=== PATIENT | male | born 1960 | race Caucasian/White ===

== ENCOUNTER 2022-03-20 09:53 | Day surgery (SDC) | payer BC ==
[2022-03-19 12:08] LABS: BASOPHILS % (AUTO) 0.5 % (0-1); EOSINOPHILS # (AUTO) 0.1 X10'3 (0-0.9); EOSINOPHILS % (AUTO) 1.5 % (0-6); HEMATOCRIT 44.2 % (42.0-52.0); LYMPHOCYTES # (AUTO) 1.4 X10'3 (1.1-4.8); MEAN CORPUSCULAR HEMOGLOBIN 34.4 PG (27.0-31.0); MEAN CORPUSCULAR HGB CONC 33.8 g/dL (33.0-36.5); MEAN CORPUSCULAR VOLUME 101.6 FL (78-98); MEAN PLATELET VOLUME 9.3 FL (7.4-10.4); MONOCYTES # (AUTO) 0.7 X10'3 (0-0.9); MONOCYTES % (AUTO) 15.7 % (2-12); NEUTROPHILS % (AUTO) 49.3 % (42-75); PLATELET COUNT 129 X10'3 (140-440); RED BLOOD COUNT 4.35 X10'6 (4.70-6.10); WHITE BLOOD COUNT 4.2 X10'3 (4.5-11.0)
[2022-03-19 12:10] LABS: ALBUMIN 3.4 G/DL (3.4-5.0); ANION GAP 8 (8-16); BLOOD UREA NITROGEN 5 MG/DL (7-18); BUN/CREATININE RATIO 6.5 (5.4-32.0); CALCIUM 8.4 MG/DL (8.5-10.1); CHLORIDE 100 MMOL/L (99-107); CREATININE 0.77 MG/DL (0.60-1.10); GLUCOSE 110 MG/DL (70-104); POTASSIUM 4.1 MMOL/L (3.5-5.1); SODIUM 137 MMOL/L (135-145); TOTAL CARBON DIOXIDE 29.1 MMOL/L (24-32); eGFR > 90 ML/MIN
[2022-03-19 12:13] LABS: APTT 29 SECONDS (22-32)
[2022-03-19 12:33] LABS: PLATELET ESTIMATE DECREASED; TOTAL CELLS COUNTED 100
[~2022-03-20] VITALS: Ht 175.3 cm; Wt 111.9 kg
[2022-03-20] VITALS (14 sets, daily range): BP systolic 91–117; BP diastolic 51–81
[2022-03-20] MEDS ORDERED: MIDAZolam 1mg/ml 10ml vial IV ONE (10:20)
[2022-03-20] MEDS ORDERED: fentaNYL/PF 50MCG/1 ML 2ML syringe IV ONE (10:20)
[2022-03-20] MEDS ORDERED: normal saline 1000ml 1,000 ML IV SCH (10:20)
[2022-03-20] MEDS ORDERED: SOTA120T9 PO (10:22)
[2022-03-20] MEDS ORDERED: FURO40TA4 PO (10:22)
[2022-03-20] MEDS ORDERED: APIX5TAB3 PO (10:22)
[2022-03-20] MEDS ORDERED: FOLI1TAB27 PO (10:22)
[2022-03-20] MEDS ORDERED: CYAN500T71 PO (10:22)
[2022-03-20] MEDS ORDERED: LISI10TA27 PO (10:22)
[2022-03-20] MEDS ORDERED: POTA10TA PO (10:22)
== END 2022-03-20 15:15 | disposition home or self-care (01) ==
LOC: SSTAY O 09:53
PROVIDERS: ATTEND Student in an Organized Health Care Education/Training Program
DX: I48.91 Unspecified atrial fibrillation (principal); I11.0 Hypertensive heart disease with heart failure; I50.9 Heart failure, unspecified; I42.9 Cardiomyopathy, unspecified; I08.1 Rheumatic disorders of both mitral and tricuspid valves; E66.9 Obesity, unspecified; Z68.36 Body mass index [BMI] 36.0-36.9, adult; M19.90 Unspecified osteoarthritis, unspecified site; F10.20 Alcohol dependence, uncomplicated; Z79.899 Other long term (current) drug therapy; Z88.8 Allergy status to other drugs, medicaments and biological substances; Z88.5 Allergy status to narcotic agent
CPT/HCPCS: 36415; 80048; 85025; 85610; 85730; 92960; 93005; 94760; 94799; J2250; J3010; J7030; 85007; A4620

== ENCOUNTER 2022-07-19 10:16 | Inpatient (IN) | payer BC ==
[~2022-07-19] VITALS: Ht 177.8 cm; Wt 112.3 kg
[~2022-07-19 10:16] MED LIST: APIX5TAB3 PO; CYAN500T71 PO; FOLI1TAB27 PO; FURO40TA4 PO; LISI10TA27 PO; POTA10TA PO; SOTA120T9 PO
[2022-07-19 11:03] LABS: ALANINE AMINOTRANSFERASE 74 U/L (12-78); ALKALINE PHOSPHATASE 324 IU/L (46-116); ANION GAP 17 (8-16); BILIRUBIN,TOTAL 24.3 MG/DL (0.1-1.0); BLOOD UREA NITROGEN 7 MG/DL (7-18); CALCIUM 8.2 MG/DL (8.5-10.1); CHLORIDE 85 MMOL/L (99-107); LIPASE 195 U/L (73-393); SODIUM 123 MMOL/L (135-145); TOTAL CARBON DIOXIDE 20.9 MMOL/L (24-32); eGFR > 90 ML/MIN
[2022-07-19 11:08] LABS: BASOPHILS # (AUTO) 0.1 X10'3 (0-0.2); BASOPHILS % (AUTO) 1.7 % (0-1); EOSINOPHILS % (AUTO) 0.5 % (0-6); HEMATOCRIT 32.6 % (42.0-52.0); HEMOGLOBIN 11.5 g/dl (14.0-17.9); LYMPHOCYTES # (AUTO) 0.9 X10'3 (1.1-4.8); LYMPHOCYTES % (AUTO) 11.8 % (21-51); MEAN CORPUSCULAR HEMOGLOBIN 36.3 PG (27.0-31.0); MEAN CORPUSCULAR HGB CONC 35.1 g/dL (33.0-36.5); MEAN CORPUSCULAR VOLUME 103.5 FL (78-98); MEAN PLATELET VOLUME 8.8 FL (7.4-10.4); MONOCYTES # (AUTO) 0.8 X10'3 (0-0.9); NEUTROPHILS # (AUTO) 5.7 X10'3 (1.8-7.7); PLATELET COUNT 87 X10'3 (140-440); RED BLOOD COUNT 3.15 X10'6 (4.70-6.10); RED CELL DISTRIBUTION WIDTH 16.3 % (11.5-14.5); WHITE BLOOD COUNT 7.5 X10'3 (4.5-11.0)
[2022-07-19 11:11] LABS: ANISOCYTOSIS 1+; PLATELET ESTIMATE DECREASED; SPHEROCYTES 1+; TARGET CELLS FEW
[2022-07-19 11:24] LABS: ALBUMIN/GLOBULIN RATIO 0.5 (1.1-1.5); ASPARTATE AMINO TRANSFERASE 278 U/L (10-37); GLUCOSE 95 MG/DL (70-104); TOTAL PROTEIN 6.3 G/DL (6.4-8.2)
[2022-07-19 11:26] LABS: POTASSIUM 2.9 MMOL/L (3.5-5.1)
[2022-07-19] MEDS ORDERED: POTASSIUM BICARB 20meq eff tab 20 MEQ TABLET.EFF PO ONE (11:50)
[2022-07-19 15:10] LABS: CLARITY,URINE SLIGHTLY CLOUDY (Clear); COLOR,URINE Brown (Yellow); UA COLLECTION TYPE CLN CATCH MIDSTREAM
[2022-07-19 15:12] LABS: BACTERIA,URINE FEW /HPF (Neg); RBC,URINE 0-2 /HPF (0-2)
[2022-07-19 15:13] LABS: MUCUS STRANDS NONE SEEN /LPF (Neg); SQUAMOUS EPITHELIAL CELL,UR FEW /LPF (FEW)
[2022-07-19 15:14] LABS: WBC CASTS 0-3 /LPF (NEGATIVE)
[2022-07-19] MEDS ORDERED: normal saline 1000ml 1,000 ML IV ONE (16:10)
[2022-07-19] MEDS ORDERED: CefTRIAXone 2gm/D5W 50ml BAG 50 ML IV ONE (16:10)
[2022-07-19] MEDS ORDERED: iohexol 300mg/ml 100ml inj. ONE (16:28)
[2022-07-19] MEDS ORDERED: magnesium hydroxide 30ml (MOM) UD suspension PO PRN (19:30)
[2022-07-19] MEDS ORDERED: ondansetron/PF 4mg/2ml inj IV PRN (19:30)
[2022-07-19] MEDS ORDERED: potassium Cl 40MEQ/1/2NS 520ml 520 ML IV PRN (19:30)
[2022-07-19] MEDS ORDERED: magnesium 4gm in 100ml NS 100 ML IV PRN (19:30)
[2022-07-19] MEDS ORDERED: mag hydrox/Alum hydrox/simeth 30ml oral suspension PO PRN (19:30)
[2022-07-19] MEDS ORDERED: magnesium Cl slow-release 64mg tablet PO PRN (19:30)
[2022-07-19] MEDS ORDERED: SOTA80TA10 PO (19:49)
[2022-07-19] MEDS: K and/or MAG REPLACEMENT MC SCH (20:00)
[2022-07-19] MEDS: docusate sod 100mg capsule PO SCH (20:00)
[2022-07-19] MEDS: normal saline 1000ml 1,000 ML IV SCH ×2 (20:29→22:24)
[2022-07-19 20:55] LABS: ALANINE AMINOTRANSFERASE 71 U/L (12-78); ALBUMIN 1.8 G/DL (3.4-5.0); ALKALINE PHOSPHATASE 289 IU/L (46-116); ANION GAP 13 (8-16); BILIRUBIN,TOTAL 22.4 MG/DL (0.1-1.0); BLOOD UREA NITROGEN 7 MG/DL (7-18); BUN/CREATININE RATIO 13.5 (5.4-32.0); CALCIUM 7.9 MG/DL (8.5-10.1); CHLORIDE 88 MMOL/L (99-107); CREATININE 0.52 MG/DL (0.60-1.10); SODIUM 123 MMOL/L (135-145); TOTAL CARBON DIOXIDE 22.3 MMOL/L (24-32); eGFR > 90 ML/MIN
[2022-07-19 21:08] LABS: ALBUMIN/GLOBULIN RATIO 0.5 (1.1-1.5); ASPARTATE AMINO TRANSFERASE 247 U/L (10-37); GLUCOSE 89 MG/DL (70-104); POTASSIUM 3.2 MMOL/L (3.5-5.1); TOTAL PROTEIN 5.6 G/DL (6.4-8.2)
[2022-07-19] MEDS: potassium Cl 20 mEq SR tablet PO PRN (23:14)
[2022-07-19] MEDS: LORazepam 2 mg/ml vial IV PRN (23:15)
--- NOTE | 2022-07-19 23:40 | NUR ---
CIWA SCORE 8
--- NOTE | 2022-07-20 03:00 | NUR ---
Found patient trying to get out of bed, all tele leads ripped off by himself. Patient had episode of incontinent urine with "no idea". Patient unable to stand, despite two person assist. Patient cleaned, new linens placed. Bed locked in lowest position and call light within reach. Educated patient on importance of using call light instead of trying to get out of bed.
[2022-07-20] MEDS: LORazepam 2 mg/ml vial IV PRN ×2 (03:17→05:32)
--- NOTE | 2022-07-20 03:17 | NUR ---
CIWA SCORE 16
--- NOTE | 2022-07-20 05:32 | NUR ---
CIWA SCORE 16
[2022-07-20] MEDS: docusate sod 100mg capsule PO SCH ×3 (08:00→20:55)
[2022-07-20] MEDS: K and/or MAG REPLACEMENT MC SCH ×2 (08:00→20:00)
[2022-07-20 09:03] LABS: BASOPHILS # (AUTO) 0.1 X10'3 (0-0.2); BASOPHILS % (AUTO) 1.2 % (0-1); EOSINOPHILS % (AUTO) 0.5 % (0-6); HEMATOCRIT 30.9 % (42.0-52.0); HEMOGLOBIN 10.8 g/dl (14.0-17.9); LYMPHOCYTES # (AUTO) 0.7 X10'3 (1.1-4.8); LYMPHOCYTES % (AUTO) 10.3 % (21-51); MEAN CORPUSCULAR HEMOGLOBIN 37.3 PG (27.0-31.0); MEAN CORPUSCULAR VOLUME 106.4 FL (78-98); MEAN PLATELET VOLUME 8.9 FL (7.4-10.4); MONOCYTES # (AUTO) 0.8 X10'3 (0-0.9); MONOCYTES % (AUTO) 12.8 % (2-12); NEUTROPHILS # (AUTO) 4.9 X10'3 (1.8-7.7); NEUTROPHILS % (AUTO) 75.2 % (42-75); PLATELET COUNT 78 X10'3 (140-440); RED BLOOD COUNT 2.91 X10'6 (4.70-6.10); RED CELL DISTRIBUTION WIDTH 16.5 % (11.5-14.5); WHITE BLOOD COUNT 6.5 X10'3 (4.5-11.0)
[2022-07-20 09:11] LABS: ALANINE AMINOTRANSFERASE 78 U/L (12-78); ALBUMIN 1.9 G/DL (3.4-5.0); ALKALINE PHOSPHATASE 285 IU/L (46-116); ANION GAP 10 (8-16); BILIRUBIN,TOTAL 24.1 MG/DL (0.1-1.0); BLOOD UREA NITROGEN 9 MG/DL (7-18); BUN/CREATININE RATIO 13.6 (5.4-32.0); CALCIUM 8.2 MG/DL (8.5-10.1); CHLORIDE 90 MMOL/L (99-107); CREATININE 0.66 MG/DL (0.60-1.10); MAGNESIUM 1.9 MG/DL (1.5-2.4); SODIUM 126 MMOL/L (135-145); eGFR > 90 ML/MIN
[2022-07-20 09:13] LABS: ALBUMIN/GLOBULIN RATIO 0.5 (1.1-1.5); GLUCOSE 105 MG/DL (70-104); POTASSIUM 3.2 MMOL/L (3.5-5.1); TOTAL PROTEIN 5.9 G/DL (6.4-8.2)
[2022-07-20] MEDS: potassium Cl 20 mEq SR tablet PO PRN (09:28)
[2022-07-20 09:52] LABS: ASPARTATE AMINO TRANSFERASE 130 U/L (10-37)
[2022-07-20 14:00] VITALS: BP 148/78
[2022-07-20 18:00] VITALS: BP 166/60
[2022-07-20] MEDS ORDERED: predniSONE 20 mg tablet PO ONE (18:45)
--- NOTE | 2022-07-20 18:46 | NUR ---
Patient in room PCU 3016A. I have received report from Destinee REVELES and had the opportunity to ask questions and assume patient care. Pt is laying supine in bed. Pt alert to self only. Pt declines any c/o pain at this time. Pt on RA. No s/s of distress. BLL, call light witin reach, frequently used items in reach, frequent rounding, senior premium auditor socks applied, will continue to monitor.
[2022-07-20] MEDS ORDERED: apixaban 5mg tablet PO SCH (20:00)
[2022-07-20] MEDS: Ursodiol 300mg capsule PO SCH (20:00)
[2022-07-20 20:43] LABS: HIV ANTIBODY 1&2 RAPID NON-REACTIVE (Neg)
[2022-07-20] MEDS: piperacillin/tazo 3.375gm/50ml 50 ML IV SCH (20:55)
[2022-07-20] MEDS: lactulose 20gm/30ml cup PO SCH (20:55)
[2022-07-20] MEDS: furosemide 40mg tablet PO SCH (20:55)
[2022-07-20] MEDS: sotalol HCl 40mg (1/2 tablet) PO SCH (20:57)
[2022-07-20 22:00] VITALS: BP 160/58
[2022-07-21] MEDS: piperacillin/tazo 3.375gm/50ml 50 ML IV SCH ×3 (00:57→16:45)
[2022-07-21 02:00] VITALS: BP 158/67
[2022-07-21] MEDS: lactulose 20gm/30ml cup PO SCH ×4 (02:00→20:03)
[2022-07-21 06:00] VITALS: BP 154/75
--- NOTE | 2022-07-21 06:35 | NUR ---
Problems reprioritized. Patient report given, questions answered & plan of care reviewed with Destinee REVELES.
[2022-07-21 07:15] LABS: ALANINE AMINOTRANSFERASE 79 U/L (12-78); ALBUMIN 1.9 G/DL (3.4-5.0); ALKALINE PHOSPHATASE 282 IU/L (46-116); ANION GAP 11 (8-16); BLOOD UREA NITROGEN 8 MG/DL (7-18); CALCIUM 8.3 MG/DL (8.5-10.1); CHLORIDE 90 MMOL/L (99-107); MAGNESIUM 1.9 MG/DL (1.5-2.4); SODIUM 127 MMOL/L (135-145); TOTAL CARBON DIOXIDE 26.5 MMOL/L (24-32)
[2022-07-21 07:31] LABS: ASPARTATE AMINO TRANSFERASE 227 U/L (10-37)
[2022-07-21 07:33] LABS: ALBUMIN/GLOBULIN RATIO 0.5 (1.1-1.5); BILIRUBIN,TOTAL 25.1 MG/DL (0.1-1.0); CREATININE 0.89 MG/DL (0.60-1.10); GLUCOSE 120 MG/DL (70-104); PHOSPHORUS 1.9 MG/DL (2.3-4.5); TOTAL PROTEIN 5.9 G/DL (6.4-8.2); eGFR 87 ML/MIN
[2022-07-21 07:37] LABS: POTASSIUM 2.9 MMOL/L (3.5-5.1)
--- NOTE | 2022-07-21 07:40 | NUR ---
RM 5944T: pt has critical K+ 2.9. Will replace per protocol Thanks Destinee
[2022-07-21 07:42] LABS: BASOPHILS # (AUTO) 0.1 X10'3 (0-0.2); BASOPHILS % (AUTO) 0.8 % (0-1); EOSINOPHILS % (AUTO) 0.1 % (0-6); HEMATOCRIT 29.1 % (42.0-52.0); HEMOGLOBIN 10.3 g/dl (14.0-17.9); LYMPHOCYTES # (AUTO) 0.5 X10'3 (1.1-4.8); LYMPHOCYTES % (AUTO) 6.9 % (21-51); MEAN CORPUSCULAR HEMOGLOBIN 36.8 PG (27.0-31.0); MEAN CORPUSCULAR HGB CONC 35.3 g/dL (33.0-36.5); MEAN CORPUSCULAR VOLUME 104.3 FL (78-98); MEAN PLATELET VOLUME 8.6 FL (7.4-10.4); MONOCYTES # (AUTO) 0.7 X10'3 (0-0.9); MONOCYTES % (AUTO) 9.4 % (2-12); NEUTROPHILS # (AUTO) 5.8 X10'3 (1.8-7.7); NEUTROPHILS % (AUTO) 82.8 % (42-75); PLATELET COUNT 86 X10'3 (140-440); RED BLOOD COUNT 2.79 X10'6 (4.70-6.10); RED CELL DISTRIBUTION WIDTH 16.6 % (11.5-14.5); WHITE BLOOD COUNT 7.1 X10'3 (4.5-11.0)
[2022-07-21 07:48] LABS: ANISOCYTOSIS 1+; PLATELET ESTIMATE DECREASED; TARGET CELLS 1+
[2022-07-21] MEDS: K and/or MAG REPLACEMENT MC SCH ×2 (08:00→20:00)
[2022-07-21] MEDS: lisinopril 10 MG tablet PO SCH (08:47)
[2022-07-21] MEDS: folic acid 1mg tablet PO SCH (08:48)
[2022-07-21] MEDS: cyanocobalamin 500mcg tablet PO SCH (08:48)
[2022-07-21] MEDS: furosemide 40mg tablet PO SCH ×2 (08:48→20:04)
[2022-07-21] MEDS: docusate sod 100mg capsule PO SCH ×2 (08:49→20:04)
[2022-07-21] MEDS: potassium Cl 20 mEq SR tablet PO PRN ×2 (08:51→15:49)
[2022-07-21] MEDS: predniSONE 20 mg tablet PO SCH (09:00)
[2022-07-21] MEDS: sotalol HCl 40mg (1/2 tablet) PO SCH ×2 (09:00→20:04)
[2022-07-21] MEDS: Ursodiol 300mg capsule PO SCH ×2 (09:00→20:04)
[2022-07-21 11:14] LABS: CARCINOEMBRYONIC ANTIGEN 4.7 ng/mL (0.0-4.7)
[2022-07-21 13:30] VITALS: BP 123/74
[2022-07-21] MEDS: normal saline 1000ml 1,000 ML IV SCH (13:31)
--- NOTE | 2022-07-21 14:08 | NUR ---
Jovani Consult: Jovain 11; no edema/wounds per EMR. Addendum: 07/21/22 at [address] Amended: Links added.
[2022-07-21 14:28] LABS: POTASSIUM 2.6 MMOL/L (3.5-5.1)
[2022-07-21] MEDS ORDERED: potassium phosphate inj 30 MMOL in normal saline 250ml IV soln 250 ML IV ONE (15:20)
--- NOTE | 2022-07-21 15:22 | NUR ---
RM 3025a: pt's K+ critical at 2.6. will continue to replace per protocol.
[2022-07-21 16:00] LABS: TOTAL IRON BINDING CAPACITY 92 UG/DL (259-388)
[2022-07-21 16:21] LABS: % IRON SATURATION 80 % (11-46); IRON 74 UG/DL (53-167)
[2022-07-21] MEDS: LORazepam 2 mg/ml vial IV PRN ×2 (16:30→20:04)
[2022-07-21] MEDS: pantoprazole 40MG/NS 100ML BAG 100 ML IV SCH ×2 (16:45→20:00)
[2022-07-21 18:00] VITALS: BP 109/71
--- NOTE | 2022-07-21 18:00 | NUR ---
Patient in room PCU 0172D. I have received report from and had the opportunity to ask questions and assume patient care. Pt laying semi fowlers in bed, piv to r fa becoming untapped. PIV assessed, intact and infuding, piv reinfirced. Pt declines c/o pain at the site. Pt A&O to self. Pt ddeclines any c/o pain at this time. Pt on RA. No s/s of distress. BLL, call light within reach, frequently used items in reach, frequent rounding, drapery operator socks on, tab alarm on, alarm on and audiable, will continue to monitor. Addendum: 07/22/22 at 0205 by Genia Michelle RN Report received from Destinee REVELES
--- NOTE | 2022-07-21 19:24 | NUR ---
Pts 22G to RFA dislodged. Tip intact, pt declines any pain at the site. Will attempt to place another PIV. BLL, call light within reach, frequently used items in reach, frequent rounding, pattern cutter socks on, will continue to monitor.
[2022-07-21] MEDS ORDERED: LORazepam 1 MG tablet PO PRN (19:40)
[2022-07-21 22:00] VITALS: BP 117/80
[2022-07-22] MEDS: piperacillin/tazo 3.375gm/50ml 50 ML IV SCH ×3 (00:33→16:32)
[2022-07-22 02:00] VITALS: BP 138/79
[2022-07-22] MEDS: lactulose 20gm/30ml cup PO SCH ×4 (02:13→19:45)
[2022-07-22 06:00] VITALS: BP 121/67
[2022-07-22 06:24] LABS: BASOPHILS # (AUTO) 0.1 X10'3 (0-0.2); BASOPHILS % (AUTO) 0.8 % (0-1); EOSINOPHILS # (AUTO) 0.1 X10'3 (0-0.9); EOSINOPHILS % (AUTO) 0.8 % (0-6); HEMATOCRIT 30.1 % (42.0-52.0); LYMPHOCYTES # (AUTO) 0.9 X10'3 (1.1-4.8); LYMPHOCYTES % (AUTO) 10.4 % (21-51); MEAN CORPUSCULAR HGB CONC 36.6 g/dL (33.0-36.5); MEAN CORPUSCULAR VOLUME 103.4 FL (78-98); MEAN PLATELET VOLUME 8.6 FL (7.4-10.4); MONOCYTES # (AUTO) 0.9 X10'3 (0-0.9); MONOCYTES % (AUTO) 10.5 % (2-12); NEUTROPHILS # (AUTO) 6.5 X10'3 (1.8-7.7); NEUTROPHILS % (AUTO) 77.5 % (42-75); PLATELET COUNT 95 X10'3 (140-440); RED BLOOD COUNT 2.91 X10'6 (4.70-6.10); RED CELL DISTRIBUTION WIDTH 16.6 % (11.5-14.5); WHITE BLOOD COUNT 8.4 X10'3 (4.5-11.0)
--- NOTE | 2022-07-22 06:33 | NUR ---
Problems reprioritized. Patient report given, questions answered & plan of care reviewed with Destinee REVELES.
[2022-07-22 07:13] LABS: ALANINE AMINOTRANSFERASE 80 U/L (12-78); ALBUMIN 1.8 G/DL (3.4-5.0); ALKALINE PHOSPHATASE 258 IU/L (46-116); ANION GAP 10 (8-16); BLOOD UREA NITROGEN 7 MG/DL (7-18); CHLORIDE 93 MMOL/L (99-107); MAGNESIUM 1.5 MG/DL (1.5-2.4); SODIUM 131 MMOL/L (135-145); TOTAL CARBON DIOXIDE 27.6 MMOL/L (24-32)
[2022-07-22 07:19] LABS: MEAN CORPUSCULAR HEMOGLOBIN 37.9 PG (27.0-31.0)
[2022-07-22 07:30] LABS: ALBUMIN/GLOBULIN RATIO 0.5 (1.1-1.5); TOTAL PROTEIN 5.7 G/DL (6.4-8.2)
[2022-07-22] MEDS: normal saline 1000ml 1,000 ML IV SCH (07:30)
[2022-07-22 07:33] LABS: ASPARTATE AMINO TRANSFERASE 184 U/L (10-37); BILIRUBIN,TOTAL 25.5 MG/DL (0.1-1.0); BUN/CREATININE RATIO 8.8 (5.4-32.0); GLUCOSE 90 MG/DL (70-104); PHOSPHORUS 2.3 MG/DL (2.3-4.5); eGFR > 90 ML/MIN
[2022-07-22 07:39] LABS: ANISOCYTOSIS 1+; PLATELET ESTIMATE DECREASED; POIKILOCYTOSIS FEW; TARGET CELLS FEW
[2022-07-22 07:46] LABS: POTASSIUM 2.7 MMOL/L (3.5-5.1)
--- NOTE | 2022-07-22 07:46 | NUR ---
CRITICAL LAB VALUE TAKEN FROM LAB, REPORTED TO PRIMARY RN.
[2022-07-22] MEDS: K and/or MAG REPLACEMENT MC SCH ×2 (07:51→19:35)
[2022-07-22] MEDS: docusate sod 100mg capsule PO SCH ×2 (08:00→19:35)
[2022-07-22] MEDS: cyanocobalamin 500mcg tablet PO SCH (08:21)
[2022-07-22] MEDS: predniSONE 20 mg tablet PO SCH (08:21)
[2022-07-22] MEDS: folic acid 1mg tablet PO SCH (08:21)
[2022-07-22] MEDS: sotalol HCl 40mg (1/2 tablet) PO SCH ×2 (08:22→19:45)
[2022-07-22] MEDS: furosemide 40mg tablet PO SCH ×2 (08:23→19:45)
[2022-07-22] MEDS: lisinopril 10 MG tablet PO SCH (08:23)
[2022-07-22] MEDS: pantoprazole 40MG/NS 100ML BAG 100 ML IV SCH ×2 (08:25→21:54)
[2022-07-22] MEDS: Ursodiol 300mg capsule PO SCH ×2 (08:25→19:45)
[2022-07-22] MEDS: LORazepam 2 mg/ml vial IV PRN ×3 (08:25→23:45)
[2022-07-22] MEDS: potassium Cl 20 mEq SR tablet PO PRN ×3 (08:26→21:20)
--- NOTE | 2022-07-22 09:01 | NUR ---
RM 3025A: AM lab K+ critical at 2.7. 1st dose po replacement given. Will continue to follow protocol. JOHNATHON VIRK messaged re: K+ critical lab
[2022-07-22] MEDS ORDERED: magnesium 4gm in 100ml NS 100 ML IV ONE (12:05)
[2022-07-22] MEDS ORDERED: potassium phosphate inj 30 MMOL in normal saline 250ml IV soln 250 ML IV ONE (12:05)
--- NOTE | 2022-07-22 12:32 | NUR ---
Messaged regarding pain meds. None ordered. RM 7519S: pt's is requesting something for pain; pt complaining to her of neck pain. JOHNATHON
[2022-07-22 13:00] VITALS: BP 110/82
[2022-07-22 18:00] VITALS: BP 114/76
[2022-07-22] MEDS ORDERED: magnesium 4gm in 100ml NS 100 ML IV PRN (19:50)
[2022-07-22] MEDS ORDERED: magnesium Cl slow-release 64mg tablet PO PRN (19:50)
[2022-07-22] MEDS ORDERED: potassium Cl 40MEQ/1/2NS 520ml 520 ML IV PRN (19:50)
[2022-07-22 22:00] VITALS: BP 104/68
[2022-07-23] MEDS: lactulose 20gm/30ml cup PO SCH ×4 (01:23→19:23)
[2022-07-23] MEDS: potassium Cl 20 mEq SR tablet PO PRN ×3 (01:24→19:23)
[2022-07-23] MEDS: piperacillin/tazo 3.375gm/50ml 50 ML IV SCH ×3 (01:24→16:00)
[2022-07-23] MEDS: normal saline 1000ml 1,000 ML IV SCH ×2 (01:33→19:49)
[2022-07-23 02:00] VITALS: BP 100/70
[2022-07-23] MEDS: LORazepam 2 mg/ml vial IV PRN ×7 (02:11→22:28)
[2022-07-23 06:00] VITALS: BP 98/54
[2022-07-23 06:35] LABS: BASOPHILS # (AUTO) 0.1 X10'3 (0-0.2); BASOPHILS % (AUTO) 0.7 % (0-1); EOSINOPHILS # (AUTO) 0.1 X10'3 (0-0.9); HEMATOCRIT 30.3 % (42.0-52.0); HEMOGLOBIN 10.8 g/dl (14.0-17.9); LYMPHOCYTES # (AUTO) 1.1 X10'3 (1.1-4.8); LYMPHOCYTES % (AUTO) 12.3 % (21-51); MEAN CORPUSCULAR HEMOGLOBIN 37.3 PG (27.0-31.0); MEAN CORPUSCULAR HGB CONC 35.5 g/dL (33.0-36.5); MEAN CORPUSCULAR VOLUME 105.1 FL (78-98); MEAN PLATELET VOLUME 8.7 FL (7.4-10.4); MONOCYTES # (AUTO) 1.2 X10'3 (0-0.9); MONOCYTES % (AUTO) 13.8 % (2-12); NEUTROPHILS # (AUTO) 6.3 X10'3 (1.8-7.7); NEUTROPHILS % (AUTO) 72.2 % (42-75); PLATELET COUNT 94 X10'3 (140-440); RED BLOOD COUNT 2.89 X10'6 (4.70-6.10); RED CELL DISTRIBUTION WIDTH 16.5 % (11.5-14.5); WHITE BLOOD COUNT 8.7 X10'3 (4.5-11.0)
[2022-07-23 07:01] LABS: ALANINE AMINOTRANSFERASE 79 U/L (12-78); ALBUMIN 1.8 G/DL (3.4-5.0); ALKALINE PHOSPHATASE 235 IU/L (46-116); ANION GAP 8 (8-16); BLOOD UREA NITROGEN 7 MG/DL (7-18); CHLORIDE 97 MMOL/L (99-107); MAGNESIUM 2.3 MG/DL (1.5-2.4); SODIUM 134 MMOL/L (135-145); TOTAL CARBON DIOXIDE 28.6 MMOL/L (24-32)
[2022-07-23 07:06] LABS: BILIRUBIN,TOTAL 26.4 MG/DL (0.1-1.0); BUN/CREATININE RATIO 8.6 (5.4-32.0); CREATININE 0.81 MG/DL (0.60-1.10); GLUCOSE 95 MG/DL (70-104); PHOSPHORUS 2.8 MG/DL (2.3-4.5); POTASSIUM 3.2 MMOL/L (3.5-5.1); eGFR > 90 ML/MIN
[2022-07-23 07:20] LABS: ASPARTATE AMINO TRANSFERASE 158 U/L (10-37)
[2022-07-23] MEDS: pantoprazole 40MG/NS 100ML BAG 100 ML IV SCH (07:23)
[2022-07-23 07:30] LABS: ALBUMIN/GLOBULIN RATIO 0.4 (1.1-1.5)
[2022-07-23] MEDS: furosemide 40mg tablet PO SCH ×2 (07:33→19:23)
[2022-07-23] MEDS: cyanocobalamin 500mcg tablet PO SCH (07:33)
[2022-07-23] MEDS: Ursodiol 300mg capsule PO SCH ×2 (07:33→19:22)
[2022-07-23] MEDS: sotalol HCl 40mg (1/2 tablet) PO SCH ×2 (07:33→19:22)
[2022-07-23] MEDS: folic acid 1mg tablet PO SCH (07:33)
[2022-07-23] MEDS: lisinopril 10 MG tablet PO SCH (07:34)
[2022-07-23] MEDS: docusate sod 100mg capsule PO SCH ×2 (07:36→19:19)
[2022-07-23] MEDS: predniSONE 20 mg tablet PO SCH (07:37)
[2022-07-23 10:58] VITALS: BP 123/79
--- NOTE | 2022-07-23 12:37 | NUR ---
PRESSURE ULCER EDUCATION: DEFINITION: A pressure ulcer is an area of skin that breaks down when you stay in one position too long. The constant pressure against the skin reduces the blood flow to that area and the affected tissue dies. CAUSES: "Being bedridden or in a wheelchair "Fragile skin "Having a chronic condition, such as diabetes or vascular disease "Inability to move certain parts of your body without assistance "Older age "Incontinence of urine or stool SYMPTOMS: "A reddened area that DOES NOT turn white when pressed on - this can be the beginning of a pressure ulcer "A blister, deep sore or a crater - these can be advanced pressure ulcers FIRST AID: "Relieve the pressure on this area "Keep the area clean and dry "Call your primary doctor if you see any of the above symptoms "DO NOT massage the area "DO NOT use a donut shaped or ring shaped pillow- these actually interfere with the blood flow and cause complications PREVENTION: "Check for pressure ulcers everyday "Change position at least every two hours to relieve pressure "Use items that help relieve pressure- pillows, sheepskin, foam padding, and powders. "Keep skin clean and dry "Eat healthy well balanced meals "Exercise daily IF YOU SEE ANY OF THESE SYMPTOMS WHILE IN THE HOSPITAL - TELL YOUR NURSE IMMEDIATELY. IF YOU SEE ANY OF THESE SYMPTOMS WHILE AT HOME OR HAVE ANY QUESTIONS OR CONCERNS ABOUT PRESSURE ULCERS - CALL YOUR PRIMARY DOCTOR IMMEDIATELY. Addendum: 07/23/22 at 1238 by Itzel Durant LVN Amended: Links added.
[2022-07-23 15:42] VITALS: BP 97/56
[2022-07-23] MEDS ORDERED: ondansetron 4mg rapidly disintigrating tab PO PRN (16:50)
[2022-07-23 18:00] VITALS: BP 123/74
--- NOTE | 2022-07-23 18:02 | NUR ---
Contacted Dr. Barrera: can we renew his IV ativan order. He is actively withdrawing and the order expires tonight. Addendum: 07/23/22 at 1827 by Chelsey Whitley RN Dr. Holly mata'd for patient to continue IV ativan.
[2022-07-23] MEDS: K and/or MAG REPLACEMENT MC SCH (19:01)
[2022-07-23] MEDS ORDERED: LORazepam 1 MG tablet PO PRN ×2 (19:15→19:40)
[2022-07-23] MEDS: pantoprazole 40mg Tablet.DR PO SCH (19:23)
[2022-07-23 22:00] VITALS: BP 109/72
[2022-07-24] MEDS: lactulose 20gm/30ml cup PO SCH ×3 (02:00→15:55)
[2022-07-24] MEDS: LORazepam 2 mg/ml vial IV PRN ×4 (05:54→19:45)
[2022-07-24 06:00] VITALS: BP 132/73
[2022-07-24 06:39] LABS: BASOPHILS # (AUTO) 0.1 X10'3 (0-0.2); BASOPHILS % (AUTO) 0.6 % (0-1); EOSINOPHILS # (AUTO) 0.1 X10'3 (0-0.9); EOSINOPHILS % (AUTO) 1.2 % (0-6); HEMATOCRIT 32.8 % (42.0-52.0); HEMOGLOBIN 11.4 g/dl (14.0-17.9); LYMPHOCYTES # (AUTO) 1.1 X10'3 (1.1-4.8); LYMPHOCYTES % (AUTO) 12.8 % (21-51); MEAN CORPUSCULAR HEMOGLOBIN 36.8 PG (27.0-31.0); MEAN CORPUSCULAR HGB CONC 34.7 g/dL (33.0-36.5); MEAN PLATELET VOLUME 8.9 FL (7.4-10.4); MONOCYTES # (AUTO) 1.3 X10'3 (0-0.9); MONOCYTES % (AUTO) 15.2 % (2-12); NEUTROPHILS % (AUTO) 70.2 % (42-75); PLATELET COUNT 101 X10'3 (140-440); RED BLOOD COUNT 3.09 X10'6 (4.70-6.10); RED CELL DISTRIBUTION WIDTH 16.7 % (11.5-14.5); WHITE BLOOD COUNT 8.6 X10'3 (4.5-11.0)
[2022-07-24 07:13] LABS: ALANINE AMINOTRANSFERASE 76 U/L (12-78); ALBUMIN 1.8 G/DL (3.4-5.0); ALKALINE PHOSPHATASE 218 IU/L (46-116); ANION GAP 9 (8-16); BLOOD UREA NITROGEN 9 MG/DL (7-18); CHLORIDE 99 MMOL/L (99-107); SODIUM 136 MMOL/L (135-145); TOTAL CARBON DIOXIDE 28.5 MMOL/L (24-32)
[2022-07-24 07:32] LABS: ALBUMIN/GLOBULIN RATIO 0.5 (1.1-1.5); ASPARTATE AMINO TRANSFERASE 136 U/L (10-37); BILIRUBIN,TOTAL 26.2 MG/DL (0.1-1.0); BUN/CREATININE RATIO 10.6 (5.4-32.0); CREATININE 0.85 MG/DL (0.60-1.10); GLUCOSE 86 MG/DL (70-104); PHOSPHORUS 3.3 MG/DL (2.3-4.5); POTASSIUM 3.3 MMOL/L (3.5-5.1); TOTAL PROTEIN 5.7 G/DL (6.4-8.2); eGFR > 90 ML/MIN
[2022-07-24] MEDS ORDERED: thiamine 100mg tablet PO SCH (08:00)
[2022-07-24] MEDS: K and/or MAG REPLACEMENT MC SCH (08:00)
[2022-07-24] MEDS: Ursodiol 300mg capsule PO SCH (08:02)
[2022-07-24] MEDS: docusate sod 100mg capsule PO SCH (08:02)
[2022-07-24] MEDS: pantoprazole 40mg Tablet.DR PO SCH (08:03)
[2022-07-24] MEDS: sotalol HCl 40mg (1/2 tablet) PO SCH (08:03)
[2022-07-24] MEDS: lisinopril 10 MG tablet PO SCH (08:03)
[2022-07-24] MEDS: folic acid 1mg tablet PO SCH (08:03)
[2022-07-24] MEDS: cyanocobalamin 500mcg tablet PO SCH (08:03)
[2022-07-24] MEDS: furosemide 40mg tablet PO SCH (08:03)
[2022-07-24] MEDS: potassium Cl 20 mEq SR tablet PO PRN ×2 (10:19→15:54)
[2022-07-24 10:29] LABS: ANISOCYTOSIS 1+; PLATELET ESTIMATE DECREASED
[2022-07-24 10:30] LABS: TARGET CELLS 1+
--- NOTE | 2022-07-24 12:26 | NUR ---
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 Pt mostly ~0% past 5 days on clear liquids diet remains ALOC AOx1 per EMR; not meeting nutrient needs. Receiving routine thiamine, folic acid, B12, and actively going through withdrawals last night per EMR likely impacting PO trends. RD paged MD regarding diet advancement to heart healthy if agreeable as pt w/ no issues chewing/swallowing and would be able to tolerate solids per RN via TC today. Given 5 days essentially no nutrition intake and severe weakness pt meets minimum severe malnutrition criteria at this time; MD notified. LBM 07/23 receiving routine colace and lactulose w/ ammonia down to 35 umol/L from 110 on admit per EMR. Will monitor for diet advancement, PO tolerance, and further nutrition intervention needs. Rec: 1. advance to heart healthy diet; consider regular if poor PO persists 2. monitor for PO trends and ONS needs w/ diet advancement 3. IF to remain on restrictive liquids diet vs PO intolerance consider EN nutrition support to optimize nutrition status if within POC 4. routine thiamine, folic acid, B12 supplementation for etoh per MD 5. routine bowel care 6. scaled wt this admit; subsequent weekly wts Addendum: 07/24/22 at [address] Amended: Links added.
--- NOTE | 2022-07-24 13:16 | NUR ---
sent to dr. ellis: [id number]: family is at bedside. They would like to speak to you about putting pt on comfort care. Thank you.
--- NOTE | 2022-07-24 13:23 | NUR ---
PHONE NUMBER FOR TEXTED TO DR. NIETO PER DR. NIETO'S REQUEST.
[2022-07-24 15:00] VITALS: BP 108/56
[2022-07-24 16:13] LABS: HBSAG SCREEN Negative (Negative); HEP A AB, IGM Negative (Negative); HEPATITIS C ANTIBODY 0.2 s/co ratio (0.0-0.9)
--- NOTE | 2022-07-24 17:13 | NUR ---
sent to [facility]: [id number], Family has decided to go to comfort care. has left for the night, but if you need to call her, she said you have her number. Thank you.
[2022-07-24 18:00] VITALS: BP 98/59
[2022-07-25] MEDS: LORazepam 2 mg/ml vial IV PRN ×2 (01:39→05:29)
[2022-07-25 06:00] VITALS: BP 116/66
--- NOTE | 2022-07-25 06:32 | NUR ---
Problems reprioritized. Patient report given, questions answered & plan of care reviewed with ANUSHKA Gallagher.
--- NOTE | 2022-07-25 11:18 | NUR ---
Noted pt made Palliative/Comfort care in EMR. On Full liquid diet. Will continue to monitor. Rec: 1. Bowel care per comfort care measures Addendum: 07/25/22 at [address] Amended: Links added.
[2022-07-25] MEDS ORDERED: morphine ORAL 5MG/0.25 ML (Conc. morphine) oral syringe PO PRN (12:15)
[2022-07-25] MEDS: morphine 4 MG/ML inj SYRINge IV PRN (14:57)
[2022-07-26 02:20] VITALS: BP 95/62
--- NOTE | 2022-07-26 03:22 | NUR ---
agree with assess by ANUSHKA Barba
[2022-07-26] MEDS: morphine 4 MG/ML inj SYRINge IV PRN ×3 (03:48→16:31)
--- NOTE | 2022-07-26 06:22 | NUR ---
Gave report to ANUSHKA Gallagher. Noted patient received morphine and tolerated it well.
--- NOTE | 2022-07-26 06:57 | NUR ---
Patient in room PCU 3025. I have received report from Cash REVELES and had the opportunity to ask questions and assume patient care.
[2022-07-26 07:31] VITALS: BP 143/75
[2022-07-26] MEDS: morphine 10mg/0.5ml (conc. morphine) oral syringe PO PRN ×2 (10:30→19:50)
[2022-07-26 10:35] VITALS: BP 100/63
--- NOTE | 2022-07-26 13:41 | NUR ---
Report given to Wen REVELES on Med surg. Will transport via bed.
--- NOTE | 2022-07-26 14:35 | NUR ---
PT TRANSFERRED FROM PCU, S
--- NOTE | 2022-07-26 14:40 | NUR ---
Patient transported to med surg room 345 by nursing via bed.
[2022-07-26 15:02] VITALS: BP 95/71
--- NOTE | 2022-07-26 16:14 | NUR ---
AGREE WITH PHYSICAL ASSESSMENT DONE BY SANTIAGO REVELES EXCEPT FOR CHANGES MADE Addendum: 07/26/22 at 1615 by Samantha Valdes RN Amended: Links added.
--- NOTE | 2022-07-26 18:15 | NUR ---
Patient in room [facility] 345. I have received report from Wen REVELES and had the opportunity to ask questions and assume patient care.
--- NOTE | 2022-07-26 18:19 | NUR ---
Problems reprioritized. Patient report given, questions answered & plan of care reviewed with ARYAN REVELES.
--- NOTE | 2022-07-27 03:30 | NUR ---
Offered patient pain medications. Patient states that he is not in need of any medication.
[2022-07-27 06:00] VITALS: BP 141/91
--- NOTE | 2022-07-27 06:24 | NUR ---
Problems reprioritized. Patient report given, questions answered & plan of care reviewed with Keyshawn REVELES.
[2022-07-27 10:00] VITALS: BP 137/72
[2022-07-27 11:12] LABS: BASOPHILS % (AUTO) 0.5 % (0-1); EOSINOPHILS # (AUTO) 0.1 X10'3 (0-0.9); HEMATOCRIT 32.7 % (42.0-52.0); HEMOGLOBIN 11.4 g/dl (14.0-17.9); LYMPHOCYTES # (AUTO) 0.8 X10'3 (1.1-4.8); LYMPHOCYTES % (AUTO) 9.1 % (21-51); MEAN CORPUSCULAR HEMOGLOBIN 37.7 PG (27.0-31.0); MEAN CORPUSCULAR HGB CONC 34.8 g/dL (33.0-36.5); MEAN CORPUSCULAR VOLUME 108.3 FL (78-98); MEAN PLATELET VOLUME 9.1 FL (7.4-10.4); MONOCYTES # (AUTO) 1.4 X10'3 (0-0.9); MONOCYTES % (AUTO) 15.5 % (2-12); NEUTROPHILS # (AUTO) 6.8 X10'3 (1.8-7.7); NEUTROPHILS % (AUTO) 73.9 % (42-75); PLATELET COUNT 95 X10'3 (140-440); RED BLOOD COUNT 3.02 X10'6 (4.70-6.10); RED CELL DISTRIBUTION WIDTH 16.7 % (11.5-14.5); WHITE BLOOD COUNT 9.2 X10'3 (4.5-11.0)
[2022-07-27 11:43] LABS: ALANINE AMINOTRANSFERASE 71 U/L (12-78); ALBUMIN 1.8 G/DL (3.4-5.0); ALKALINE PHOSPHATASE 200 IU/L (46-116); ANION GAP 8 (8-16); BLOOD UREA NITROGEN 33 MG/DL (7-18); BUN/CREATININE RATIO 19.1 (5.4-32.0); CALCIUM 8.8 MG/DL (8.5-10.1); CHLORIDE 100 MMOL/L (99-107); CREATININE 1.73 MG/DL (0.60-1.10); SODIUM 135 MMOL/L (135-145); TOTAL CARBON DIOXIDE 27.4 MMOL/L (24-32); eGFR 40 ML/MIN
[2022-07-27 11:48] LABS: ALBUMIN/GLOBULIN RATIO 0.4 (1.1-1.5); ASPARTATE AMINO TRANSFERASE 124 U/L (10-37); BILIRUBIN,TOTAL 30.7 MG/DL (0.1-1.0); GLUCOSE 117 MG/DL (70-104); MAGNESIUM 2.1 MG/DL (1.5-2.4); POTASSIUM 3.3 MMOL/L (3.5-5.1); TOTAL PROTEIN 6.4 G/DL (6.4-8.2)
[2022-07-27] MEDS ORDERED: magnesium 4gm in 100ml NS 100 ML IV PRN (12:50)
[2022-07-27] MEDS ORDERED: magnesium Cl slow-release 64mg tablet PO PRN (12:50)
[2022-07-27] MEDS ORDERED: normal saline 1000ml 1,000 ML IV ONE (12:50)
[2022-07-27] MEDS ORDERED: potassium Cl 40MEQ/1/2NS 520ml 520 ML IV PRN (12:50)
[2022-07-27] MEDS: rifaximin 550mg tablet PO SCH ×2 (13:18→20:51)
[2022-07-27] MEDS: Ursodiol 300mg capsule PO SCH ×2 (13:18→20:51)
[2022-07-27] MEDS: potassium Cl 20 mEq SR tablet PO PRN ×3 (13:24→22:01)
[2022-07-27] MEDS: prednisone 10mg tablet PO SCH (13:24)
[2022-07-27] MEDS: lactulose 20gm/30ml cup PO SCH ×2 (13:25→20:51)
--- NOTE | 2022-07-27 14:00 | NUR ---
Charge nurse Vianca and MD at bedside to discuss pt's status. Pt oriented and reported that he wanted full treatment and wanted to "live". MD informed pt of treatment options or withdrawal of treatment options and pt wished to proceed with Full Code status and full treatment plan.
[2022-07-27] MEDS: normal saline 1000ml 1,000 ML IV SCH (15:26)
[2022-07-27] MEDS ORDERED: mag hydrox/Alum hydrox/simeth 30ml oral suspension PO PRN (17:50)
[2022-07-27] MEDS ORDERED: haloperidol 5mg tablet PO PRN (17:50)
[2022-07-27] MEDS ORDERED: haloperidol lactate 5mg/ml inj IM PRN (17:50)
[2022-07-27 18:00] VITALS: BP 127/69
--- NOTE | 2022-07-27 18:35 | NUR ---
Patient in room [facility] 345. I have received report from Keyshawn and had the opportunity to ask questions and assume patient care.
[2022-07-27] MEDS: LORazepam 2 mg/ml vial IV PRN (18:50)
[2022-07-27] MEDS: K and/or MAG REPLACEMENT MC SCH (20:00)
[2022-07-27 22:00] VITALS: BP 120/63
[2022-07-28] MEDS: LORazepam 2 mg/ml vial IV PRN ×2 (00:34→17:45)
[2022-07-28] MEDS: normal saline 1000ml 1,000 ML IV SCH ×3 (02:10→20:33)
[2022-07-28] MEDS: lactulose 20gm/30ml cup PO SCH ×7 (02:53→23:47)
--- NOTE | 2022-07-28 02:56 | NUR ---
Student documentation: I have reviewed and agree with all interventions, assessments performed and documented by Ace Barragan..
--- NOTE | 2022-07-28 02:57 | NUR ---
Student Medication Administration: For this medication-pass time frame, all medication were reviewed, dispensed, administered and documented per hospital policy by Ace Barragan student nurse.
--- NOTE | 2022-07-28 03:21 | NUR ---
Paged Dr. Barrera Patient Brad Carrera 345B. Regarding; IV Ativan and wanting PO d/t pt IV pulled out and OK to leave IV out until day shift-hard stick need ultrasound. Patient drinking fluids and pressures stable. Nurse: [phone]
[2022-07-28] MEDS ORDERED: LORazepam 1 MG tablet PO PRN (03:25)
--- NOTE | 2022-07-28 06:27 | NUR ---
Problems reprioritized. Patient report given, questions answered & plan of care reviewed with Lynne.
--- NOTE | 2022-07-28 06:37 | NUR ---
Patient in room [facility] 345. I have received report from BASIA Pompa and had the opportunity to ask questions and assume patient care.
[2022-07-28 06:38] LABS: BASOPHILS % (AUTO) 0.2 % (0-1); EOSINOPHILS % (AUTO) 0.3 % (0-6); HEMATOCRIT 30.9 % (42.0-52.0); LYMPHOCYTES % (AUTO) 9.8 % (21-51); MEAN CORPUSCULAR HEMOGLOBIN 37.8 PG (27.0-31.0); MEAN CORPUSCULAR HGB CONC 35.6 g/dL (33.0-36.5); MEAN CORPUSCULAR VOLUME 106.2 FL (78-98); MEAN PLATELET VOLUME 9.3 FL (7.4-10.4); MONOCYTES # (AUTO) 1.6 X10'3 (0-0.9); MONOCYTES % (AUTO) 15.3 % (2-12); NEUTROPHILS # (AUTO) 7.6 X10'3 (1.8-7.7); NEUTROPHILS % (AUTO) 74.4 % (42-75); PLATELET COUNT 102 X10'3 (140-440); RED BLOOD COUNT 2.91 X10'6 (4.70-6.10); RED CELL DISTRIBUTION WIDTH 16.5 % (11.5-14.5); WHITE BLOOD COUNT 10.2 X10'3 (4.5-11.0)
[2022-07-28 07:11] LABS: ALANINE AMINOTRANSFERASE 63 U/L (12-78); ALBUMIN 1.7 G/DL (3.4-5.0); ALKALINE PHOSPHATASE 194 IU/L (46-116); AMYLASE 13 U/L (25-115); ANION GAP 7 (8-16); BLOOD UREA NITROGEN 28 MG/DL (7-18); CALCIUM 8.6 MG/DL (8.5-10.1); CHLORIDE 101 MMOL/L (99-107); LIPASE 119 U/L (73-393); MAGNESIUM 2.1 MG/DL (1.5-2.4); SODIUM 135 MMOL/L (135-145); TOTAL CARBON DIOXIDE 26.7 MMOL/L (24-32)
[2022-07-28 07:34] LABS: ASPARTATE AMINO TRANSFERASE 110 U/L (10-37)
[2022-07-28 07:37] LABS: ALBUMIN/GLOBULIN RATIO 0.4 (1.1-1.5); BUN/CREATININE RATIO 21.1 (5.4-32.0); CREATININE 1.33 MG/DL (0.60-1.10); GLUCOSE 119 MG/DL (70-104); PHOSPHORUS 3.5 MG/DL (2.3-4.5); TOTAL PROTEIN 5.7 G/DL (6.4-8.2); eGFR 55 ML/MIN
[2022-07-28] MEDS: rifaximin 550mg tablet PO SCH ×2 (07:40→20:24)
[2022-07-28] MEDS: multivitamins, therapeutics tablet PO SCH (07:40)
[2022-07-28] MEDS: Ursodiol 300mg capsule PO SCH ×2 (07:40→20:23)
[2022-07-28] MEDS: prednisone 10mg tablet PO SCH (07:40)
[2022-07-28 07:47] LABS: BILIRUBIN,TOTAL 27.3 MG/DL (0.1-1.0); POTASSIUM 3.5 MMOL/L (3.5-5.1)
[2022-07-28] MEDS: K and/or MAG REPLACEMENT MC SCH ×2 (07:48→20:00)
[2022-07-28 10:00] VITALS: BP 105/62
--- NOTE | 2022-07-28 14:20 | NUR ---
Rounded with Dr. Bennett at pt's bedside with pt's present. Pt confused today, but still reported he wanted full treatment. Pt expressed wanting to "live" and not wanting to withdrawal treatment.
[2022-07-28] MEDS: CefTRIAXone/D5W-Rocephin 1gm 50 ML IV SCH (14:30)
[2022-07-28] MEDS: metroNIDAZOLE-Flagyl 500mg/NS 100 ML IV SCH ×2 (16:16→23:47)
--- NOTE | 2022-07-28 16:27 | NUR ---
EDUCATIONAL INSTITUTION CURATOR documentation: I have reviewed and agree with all interventions, assessments performed and documented by Lynne Cooper LVN .
--- NOTE | 2022-07-28 17:08 | NUR ---
Patient refused his 1700 lactulose, stated "No im good. I dont want it." then cover his head with a sheet. Live Out Nanny tried to explain what the medication was for, but patient continue to say "Im good" and kept his head cover with the sheet.
--- NOTE | 2022-07-28 18:24 | NUR ---
Patient in room [facility] 345. I have received report from ANUSHKA DANGELO and had the opportunity to ask questions and assume patient care. Addendum: 07/28/22 at 1825 by Marjorie Randolph RN Amended: Links added.
--- NOTE | 2022-07-28 18:25 | NUR ---
Problems reprioritized. Patient report given, questions answered & plan of care reviewed with ANUSHKA Danielle.
[2022-07-28] MEDS: LORazepam 1 MG tablet PO PRN (20:24)
[2022-07-28 22:00] VITALS: BP 128/68
[2022-07-29] MEDS: LORazepam 1 MG tablet PO PRN (00:31)
[2022-07-29] MEDS: lactulose 20gm/30ml cup PO SCH ×7 (00:31→19:52)
--- NOTE | 2022-07-29 04:45 | NUR ---
PT INC OF STOOLL NO LONGER USING CONDOM CATH PT KEEPS PULLING IT OFF.PORTIONED TO COMFORT SEVERAL LAYERS OF DRESSING ON PT ARM TO KEEP HIM FROM PULLING ANOTHER IV OUT.
[2022-07-29 06:00] VITALS: BP 162/80
[2022-07-29 06:35] LABS: BASOPHILS # (AUTO) 0.1 X10'3 (0-0.2); BASOPHILS % (AUTO) 1.1 % (0-1); EOSINOPHILS # (AUTO) 0.1 X10'3 (0-0.9); EOSINOPHILS % (AUTO) 0.5 % (0-6); HEMATOCRIT 32.9 % (42.0-52.0); HEMOGLOBIN 11.3 g/dl (14.0-17.9); LYMPHOCYTES # (AUTO) 1.1 X10'3 (1.1-4.8); LYMPHOCYTES % (AUTO) 10.1 % (21-51); MEAN CORPUSCULAR HEMOGLOBIN 36.7 PG (27.0-31.0); MEAN CORPUSCULAR HGB CONC 34.4 g/dL (33.0-36.5); MEAN CORPUSCULAR VOLUME 106.5 FL (78-98); MEAN PLATELET VOLUME 9.4 FL (7.4-10.4); MONOCYTES # (AUTO) 2.1 X10'3 (0-0.9); MONOCYTES % (AUTO) 18.9 % (2-12); NEUTROPHILS # (AUTO) 7.7 X10'3 (1.8-7.7); NEUTROPHILS % (AUTO) 69.4 % (42-75); PLATELET COUNT 120 X10'3 (140-440); RED BLOOD COUNT 3.09 X10'6 (4.70-6.10); RED CELL DISTRIBUTION WIDTH 16.6 % (11.5-14.5); WHITE BLOOD COUNT 11.1 X10'3 (4.5-11.0)
--- NOTE | 2022-07-29 06:40 | NUR ---
Problems reprioritized. Patient report given, questions answered & plan of care reviewed with ANUSHKA JANE. Addendum: 07/29/22 at 0647 by Marjorie Randolph RN Amended: Links added.
--- NOTE | 2022-07-29 06:58 | NUR ---
Patient in room [facility] 345. I have received report from Lolis REVELES and had the opportunity to ask questions and assume patient care.
[2022-07-29 07:07] LABS: ALANINE AMINOTRANSFERASE 71 U/L (12-78); ALBUMIN 1.8 G/DL (3.4-5.0); ALKALINE PHOSPHATASE 186 IU/L (46-116); AMYLASE 22 U/L (25-115); ANION GAP 10 (8-16); BLOOD UREA NITROGEN 23 MG/DL (7-18); CALCIUM 9.1 MG/DL (8.5-10.1); CHLORIDE 106 MMOL/L (99-107); LIPASE 242 U/L (73-393); SODIUM 141 MMOL/L (135-145); TOTAL CARBON DIOXIDE 25.3 MMOL/L (24-32)
[2022-07-29 07:13] LABS: ALBUMIN/GLOBULIN RATIO 0.4 (1.1-1.5); ASPARTATE AMINO TRANSFERASE 103 U/L (10-37); BILIRUBIN,TOTAL 25.6 MG/DL (0.1-1.0); CREATININE 1.15 MG/DL (0.60-1.10); GLUCOSE 103 MG/DL (70-104); PHOSPHORUS 2.9 MG/DL (2.3-4.5); eGFR 65 ML/MIN
[2022-07-29 07:19] LABS: TOTAL CELLS COUNTED 100
[2022-07-29 07:20] LABS: ANISOCYTOSIS 1+; PLATELET ESTIMATE DECREASED
[2022-07-29 07:21] LABS: ROULEAUX 1+; TARGET CELLS 1+; TEAR DROP CELLS FEW
[2022-07-29 07:33] LABS: TOTAL PROTEIN 5.9 G/DL (6.4-8.2)
[2022-07-29 07:36] LABS: POTASSIUM 2.8 MMOL/L (3.5-5.1)
[2022-07-29] MEDS: CefTRIAXone/D5W-Rocephin 1gm 50 ML IV SCH (08:23)
[2022-07-29] MEDS: Ursodiol 300mg capsule PO SCH ×2 (08:24→19:52)
[2022-07-29] MEDS: rifaximin 550mg tablet PO SCH ×2 (08:24→19:52)
[2022-07-29] MEDS: prednisone 10mg tablet PO SCH (08:24)
[2022-07-29] MEDS: multivitamins, therapeutics tablet PO SCH (08:24)
[2022-07-29] MEDS: potassium Cl 20 mEq SR tablet PO PRN ×3 (08:24→16:49)
[2022-07-29] MEDS: K and/or MAG REPLACEMENT MC SCH ×2 (08:25→20:00)
[2022-07-29] MEDS: metroNIDAZOLE-Flagyl 500mg/NS 100 ML IV SCH ×2 (09:16→15:35)
[2022-07-29 10:00] VITALS: BP 125/75
[2022-07-29] MEDS ORDERED: haloperidol lactate 5mg/ml inj IM PRN (12:25)
[2022-07-29] MEDS: LORazepam 2 mg/ml vial IV PRN ×5 (12:38→21:31)
[2022-07-29] MEDS: thiamine 100mg/ml 2ml inj. IV SCH ×2 (12:43→20:07)
[2022-07-29] MEDS: NUT.TX.IMPAIRED DIGEST FXN (Ensure Clear) 237 ML PO SCH ×2 (13:00→18:06)
[2022-07-29] MEDS: potassium Cl 20mEq in D5-NS 1,000 ML IV SCH (13:03)
--- NOTE | 2022-07-29 16:48 | NUR ---
patient seen by Dr Bennett order changed for severe protocol for ETOH as patients confusion is worsening , ammonia level is 45. patient medicated with Ativan x3 only mod effect. patient still pulling on lines and restless and agitated at times. Haldol 5mg given IM. patient now has a sitter, will continue to monitor
[2022-07-29] MEDS ORDERED: LORazepam 2 mg/ml vial IV PRN (17:50)
--- NOTE | 2022-07-29 18:00 | NUR ---
ok to hold NG placement as patient is eatin when fed per DR Bennett.
--- NOTE | 2022-07-29 18:01 | NUR ---
Student documentation: I have reviewed and agree with all interventions, assessments performed and documented by Frances STONE.
--- NOTE | 2022-07-29 18:26 | NUR ---
Problems reprioritized. Patient report given, questions answered & plan of care reviewed with Lolis REVELES.
--- NOTE | 2022-07-29 19:50 | NUR ---
pt behavior different tonight medicated with 4mg of ativan for the aggitation and nystigmus.
--- NOTE | 2022-07-29 19:50 | NUR ---
pt restless aggitated with nystigmus none of which he had last night, pt was lethargic last night would doze off after turning him and giving meds
--- NOTE | 2022-07-29 21:30 | NUR ---
pt started to get restless medicated with 2mg of ativan at this time, then inc of urine. pt tonight has a rectal tube as stool output is now liquid no solids noted like last night.
[2022-07-30] MEDS: metroNIDAZOLE-Flagyl 500mg/NS 100 ML IV SCH ×3 (00:18→17:07)
[2022-07-30] MEDS: LORazepam 2 mg/ml vial IV PRN ×9 (00:33→20:38)
--- NOTE | 2022-07-30 00:35 | NUR ---
pt medicated for agitation, not answering questions very confused orientated to self only. ativan 4mg given at this time,
[2022-07-30] MEDS: lactulose 20gm/30ml cup PO SCH ×4 (01:35→20:38)
--- NOTE | 2022-07-30 01:35 | NUR ---
PT POOPED RECTAL TUBE OUT AND DEFLATED IT & REPLACED IT BUT PT SQUEEZING SO TIGHT WITH RECTUM UNABLE TO REINFLATE THE BALLON. PT GIVEN 2 AM LACTULOSE DOSE AND THEN MEDICATED WITH ATIVAN 2MG TO HELP HIM RELAX SO WE COULD CALM HIM DOWN AND REINFLAE THE BALLON.LEFT ROOM RECTAL TUBE IN PLACE BUT BALLOON DEFLATED AT THIS TIME.
--- NOTE | 2022-07-30 02:00 | NUR ---
RECTAL TUBE READJUSTED IN PT AND ABLE TO BE REINFLATED. THEN RECTAL TUBE FLUSHED WITH 150CC OF WATER.
--- NOTE | 2022-07-30 04:00 | NUR ---
PT RESTLESS MEDICATED WITH 2MG ATIVAN IV. BLADDER SCANNED FOR 456CC
--- NOTE | 2022-07-30 05:00 | NUR ---
dR NIETO PAGED AFTER BLADDER SCAN OF 456 OBTAINED @0500 RECEIVED A CALL BACK AND ORDER TO STRAIGHT CATH THE PT. DID SO VIA STERILE PROCEDURE. PT TOLERATED THE PROCEDURE WELL.
--- NOTE | 2022-07-30 05:25 | NUR ---
450CC TOTAL TEA COLORED URINE OBTAINED FROM THE STRAIGHT CATG.
--- NOTE | 2022-07-30 06:20 | NUR ---
Problems reprioritized. Patient report given, questions answered & plan of care reviewed with ANUSHKA JANE. Addendum: 07/30/22 at 0628 by Marjorie Randolph RN Amended: Links added.
[2022-07-30 06:44] LABS: BASOPHILS % (AUTO) 0.3 % (0-1); EOSINOPHILS % (AUTO) 0.4 % (0-6); HEMATOCRIT 32.8 % (42.0-52.0); HEMOGLOBIN 11.1 g/dl (14.0-17.9); LYMPHOCYTES # (AUTO) 1.3 X10'3 (1.1-4.8); LYMPHOCYTES % (AUTO) 11.1 % (21-51); MEAN CORPUSCULAR HEMOGLOBIN 36.8 PG (27.0-31.0); MEAN CORPUSCULAR HGB CONC 33.9 g/dL (33.0-36.5); MEAN CORPUSCULAR VOLUME 108.7 FL (78-98); MEAN PLATELET VOLUME 9.9 FL (7.4-10.4); MONOCYTES % (AUTO) 17.2 % (2-12); NEUTROPHILS # (AUTO) 8.3 X10'3 (1.8-7.7); PLATELET COUNT 121 X10'3 (140-440); RED BLOOD COUNT 3.01 X10'6 (4.70-6.10); RED CELL DISTRIBUTION WIDTH 16.4 % (11.5-14.5); WHITE BLOOD COUNT 11.7 X10'3 (4.5-11.0)
--- NOTE | 2022-07-30 06:55 | NUR ---
Patient in room [facility] 345. I have received report from Lolis REVELES and had the opportunity to ask questions and assume patient care.
[2022-07-30 07:00] VITALS: BP 136/81
[2022-07-30 07:10] LABS: ALANINE AMINOTRANSFERASE 78 U/L (12-78); ALBUMIN 1.8 G/DL (3.4-5.0); ALKALINE PHOSPHATASE 174 IU/L (46-116); AMYLASE 18 U/L (25-115); ANION GAP 8 (8-16); BLOOD UREA NITROGEN 18 MG/DL (7-18); CHLORIDE 114 MMOL/L (99-107); LIPASE 153 U/L (73-393); MAGNESIUM 1.9 MG/DL (1.5-2.4); SODIUM 147 MMOL/L (135-145); TOTAL CARBON DIOXIDE 25.4 MMOL/L (24-32)
[2022-07-30 07:16] LABS: ASPARTATE AMINO TRANSFERASE 106 U/L (10-37); BUN/CREATININE RATIO 16.5 (5.4-32.0); CREATININE 1.09 MG/DL (0.60-1.10); GLUCOSE 107 MG/DL (70-104); PHOSPHORUS 3.3 MG/DL (2.3-4.5); POTASSIUM 3.6 MMOL/L (3.5-5.1); eGFR 69 ML/MIN
[2022-07-30 07:28] LABS: ALBUMIN/GLOBULIN RATIO 0.4 (1.1-1.5); TOTAL PROTEIN 6.1 G/DL (6.4-8.2)
--- NOTE | 2022-07-30 07:41 | NUR ---
TF consult: Pt has been changed back to full code per EMR. Had discussion w/ RN who states that pt may need to be heavily medicated at times which may affect his PO intake. However, when pt's comes in she is able to feed him and he can eat moderately well. Avg intake on Mech soft diet 40% x 10 meals. RN states that pt has sitter who should be able to feed him now. Discussed w/ RN recommendation for Ensure Enlive to hopefully help with meeting his needs. Will hold off on TF for now in hopes that PO intake will improve w/ feeder and ONS. Will continue to monitor. Rec: 1. Continue Mech soft diet as tolerated; consider BSS w/ BIOFUELS PRODUCTION MANAGER 2. Ensure Enlive TID 3. Bowel care per rx 4. Scaled wts 5. IF TF, consider Jevity at 80ml/hr goal. Addendum: 07/30/22 at [address] Amended: Links added.
[2022-07-30] MEDS: thiamine 100mg/ml 2ml inj. IV SCH ×3 (07:55→20:38)
--- NOTE | 2022-07-30 07:55 | NUR ---
checked BGL with finger stick per Shey REVELES. Result 94
[2022-07-30] MEDS: K and/or MAG REPLACEMENT MC SCH ×2 (08:00→20:00)
[2022-07-30] MEDS: folic acid 1mg/0.2ml inj IV SCH (08:06)
[2022-07-30] MEDS: rifaximin 550mg tablet PO SCH ×2 (08:09→20:38)
[2022-07-30] MEDS: prednisone 10mg tablet PO SCH (08:09)
[2022-07-30] MEDS: multivitamins, therapeutics tablet PO SCH (08:09)
[2022-07-30] MEDS: lactose-reduced food (Ensure Enlive) - 237ml bottle PO SCH ×3 (08:09→18:08)
[2022-07-30] MEDS: potassium Cl 20mEq in D5-NS 1,000 ML IV SCH (08:09)
[2022-07-30] MEDS: Ursodiol 300mg capsule PO SCH ×2 (08:11→20:38)
[2022-07-30] MEDS: CefTRIAXone/D5W-Rocephin 1gm 50 ML IV SCH (08:36)
[2022-07-30] MEDS: NUT.TX.IMPAIRED DIGEST FXN (Ensure Clear) 237 ML PO SCH ×3 (08:36→18:00)
[2022-07-30] MEDS: potassium CL 20mEq in D5-1/2NS 1,000 ML IV SCH ×2 (10:08→14:35)
[2022-07-30 10:43] VITALS: BP 104/60
[2022-07-30] MEDS ORDERED: LIDOcaine 2% 10ml TOPICAL JELLY (Urojet) TP ONE (11:15)
--- NOTE | 2022-07-30 11:28 | NUR ---
patient continues with Ativan as per protocol , see emar, still restless and mildly shaking. Bladder scanned and [address] Bennett into see patient. OK to place khan protocol. present in room. will continue to monitor
--- NOTE | 2022-07-30 11:45 | NUR ---
bladder scanned patient at 1115 with 307mL scanned in bladder. Khan cath inserted per Dr. Bennett at 1145. Immediate drainage of 385mL of clear/coco urine into drainage bag. Patient unable to be educated on khan or khan care d/t AMS.
[2022-07-30 14:44] VITALS: BP 136/76
--- NOTE | 2022-07-30 17:49 | NUR ---
patient given ativan for agitation per EMAR, with mod effect. at bedside. Talked with Dr Bennett and staff, plan is to monitor patients condition the next few days. Patient opens eyes to voice, but mostly restless and figety in bed. will continue to monitor
[2022-07-30 18:00] VITALS: BP 133/76
--- NOTE | 2022-07-30 18:29 | NUR ---
Problems reprioritized. Patient report given, questions answered & plan of care reviewed with Lolis REVELES.
[2022-07-30 22:00] VITALS: BP 147/91
[2022-07-31] MEDS: metroNIDAZOLE-Flagyl 500mg/NS 100 ML IV SCH ×3 (00:42→16:41)
[2022-07-31] MEDS: LORazepam 2 mg/ml vial IV PRN ×7 (00:42→20:32)
[2022-07-31 02:00] VITALS: BP 167/88
[2022-07-31] MEDS: lactulose 20gm/30ml cup PO SCH ×3 (02:52→16:00)
--- NOTE | 2022-07-31 03:10 | NUR ---
pt able to answer slurred one word answers, drowsy, not as restless and agitated tonight. balloon to rectal tube deflated, and then reinflated later. flushed with 100cc water. pt tolerated well. khan draining dark tea colored urine. sitter at bedside.
[2022-07-31 06:00] VITALS: BP 168/93
[2022-07-31 06:15] LABS: BASOPHILS # (AUTO) 0.1 X10'3 (0-0.2); BASOPHILS % (AUTO) 0.6 % (0-1); EOSINOPHILS # (AUTO) 0.1 X10'3 (0-0.9); EOSINOPHILS % (AUTO) 0.3 % (0-6); HEMATOCRIT 33.6 % (42.0-52.0); HEMOGLOBIN 11.2 g/dl (14.0-17.9); LYMPHOCYTES # (AUTO) 1.4 X10'3 (1.1-4.8); LYMPHOCYTES % (AUTO) 9.6 % (21-51); MEAN CORPUSCULAR HEMOGLOBIN 35.9 PG (27.0-31.0); MEAN CORPUSCULAR HGB CONC 33.2 g/dL (33.0-36.5); MEAN CORPUSCULAR VOLUME 107.9 FL (78-98); MEAN PLATELET VOLUME 9.8 FL (7.4-10.4); MONOCYTES # (AUTO) 2.2 X10'3 (0-0.9); MONOCYTES % (AUTO) 15.1 % (2-12); NEUTROPHILS % (AUTO) 74.4 % (42-75); PLATELET COUNT 125 X10'3 (140-440); RED BLOOD COUNT 3.11 X10'6 (4.70-6.10); RED CELL DISTRIBUTION WIDTH 16.6 % (11.5-14.5); WHITE BLOOD COUNT 14.7 X10'3 (4.5-11.0)
--- NOTE | 2022-07-31 06:34 | NUR ---
Problems reprioritized. Patient report given, questions answered & plan of care reviewed with ANUSHKA THORPE. Addendum: 07/31/22 at 0637 by Marjorie Randolph RN Amended: Links added.
[2022-07-31 06:40] LABS: ALANINE AMINOTRANSFERASE 80 U/L (12-78); ALBUMIN 1.8 G/DL (3.4-5.0); ALKALINE PHOSPHATASE 168 IU/L (46-116); AMYLASE 27 U/L (25-115); ANION GAP 11 (8-16); BILIRUBIN,TOTAL 18.5 MG/DL (0.1-1.0); BLOOD UREA NITROGEN 17 MG/DL (7-18); CALCIUM 9.2 MG/DL (8.5-10.1); CHLORIDE 119 MMOL/L (99-107); LIPASE 218 U/L (73-393); MAGNESIUM 1.9 MG/DL (1.5-2.4); SODIUM 153 MMOL/L (135-145); TOTAL CARBON DIOXIDE 23.1 MMOL/L (24-32)
--- NOTE | 2022-07-31 06:45 | NUR ---
Patient in room [facility] 345B. I have received report from ANUSHKA IZQUIERDO and had the opportunity to ask questions and assume patient care.
[2022-07-31 06:48] LABS: ALBUMIN/GLOBULIN RATIO 0.4 (1.1-1.5); ASPARTATE AMINO TRANSFERASE 101 U/L (10-37); BUN/CREATININE RATIO 15.2 (5.4-32.0); CREATININE 1.12 MG/DL (0.60-1.10); GLUCOSE 115 MG/DL (70-104); POTASSIUM 3.3 MMOL/L (3.5-5.1); TOTAL PROTEIN 5.9 G/DL (6.4-8.2); eGFR 67 ML/MIN
[2022-07-31] MEDS: NUT.TX.IMPAIRED DIGEST FXN (Ensure Clear) 237 ML PO SCH ×3 (08:00→18:00)
[2022-07-31] MEDS: K and/or MAG REPLACEMENT MC SCH ×2 (08:00→20:00)
[2022-07-31] MEDS: rifaximin 550mg tablet PO SCH ×2 (08:14→20:30)
[2022-07-31] MEDS: multivitamins, therapeutics tablet PO SCH (08:14)
[2022-07-31] MEDS: thiamine 100mg/ml 2ml inj. IV SCH ×3 (08:15→20:31)
[2022-07-31] MEDS: prednisone 10mg tablet PO SCH (08:15)
[2022-07-31] MEDS: Ursodiol 300mg capsule PO SCH ×2 (08:15→20:31)
[2022-07-31] MEDS: folic acid 1mg/0.2ml inj IV SCH (08:17)
[2022-07-31] MEDS: lactose-reduced food (Ensure Enlive) - 237ml bottle PO SCH ×3 (08:20→18:34)
[2022-07-31 10:00] VITALS: BP 157/93
[2022-07-31] MEDS ORDERED: magnesium 4gm in 100ml NS 100 ML IV PRN (11:10)
[2022-07-31] MEDS ORDERED: magnesium Cl slow-release 64mg tablet PO PRN (11:10)
[2022-07-31] MEDS ORDERED: potassium Cl 40MEQ/1/2NS 520ml 520 ML IV PRN (11:10)
[2022-07-31] MEDS ORDERED: potassium Cl 20 mEq SR tablet PO PRN ×2 (11:10)
[2022-07-31] MEDS: dextrose 5%-water 1,000 ML IV SCH ×2 (11:17→22:10)
[2022-07-31] MEDS: CefTRIAXone/D5W-Rocephin 1gm 50 ML IV SCH (11:40)
--- NOTE | 2022-07-31 12:35 | NUR ---
Tried to meet with patient in regards to alcohol use. Patient unable to participate in a conversation. Patient family member at bedside and said for me to leave a list of resources. I will try again with patient.
[2022-07-31] MEDS ORDERED: LORazepam 1 MG tablet PO PRN (17:50)
[2022-07-31] MEDS ORDERED: LORazepam 2 mg/ml vial IV PRN (17:50)
[2022-07-31 18:00] VITALS: BP 169/80
--- NOTE | 2022-07-31 18:29 | NUR ---
Problems reprioritized. Patient report given, questions answered & plan of care reviewed with ANUSHKA IZQUIERDO.
--- NOTE | 2022-07-31 18:55 | NUR ---
Student documentation: I have reviewed and agree with all assessments performed and documented by JOANN, STUDENT RN.
--- NOTE | 2022-07-31 20:20 | NUR ---
Aspirated patient's NG, clear contents removed then returned. Auscultated NG air heard in stomach upon auscultation. Pt's NG was clamped not hooked up to suction when received at start of shift.
[2022-07-31] MEDS ORDERED: POTASSIUM BICARB 20meq eff tab 20 MEQ TABLET.EFF PO PRN ×2 (20:25)
[2022-07-31 22:00] VITALS: BP 167/82
[2022-08-01] MEDS: LORazepam 2 mg/ml vial IV PRN ×7 (00:26→20:20)
[2022-08-01] MEDS: metroNIDAZOLE-Flagyl 500mg/NS 100 ML IV SCH ×3 (00:27→16:45)
[2022-08-01] MEDS: lactulose 20gm/30ml cup PO SCH ×2 (00:28→08:25)
[2022-08-01] MEDS: dextrose 5%-water 1,000 ML IV SCH ×2 (00:28→16:09)
[2022-08-01 02:00] VITALS: BP 172/77
--- NOTE | 2022-08-01 03:23 | NUR ---
Pt was oriented to name only. Did not speak and rarely opened his eyes. Balloon of rectal tube was deflated, reinflated, flushed with 40cc water. Pt tolerated procedure well.
[2022-08-01 03:49] VITALS: BP 172/77
[2022-08-01 06:00] VITALS: BP 171/81
--- NOTE | 2022-08-01 06:20 | NUR ---
Problems reprioritized. Patient report given, questions answered & plan of care reviewed with ANUSHKA Kennedy.
[2022-08-01 06:48] LABS: BASOPHILS # (AUTO) 0.1 X10'3 (0-0.2); BASOPHILS % (AUTO) 0.4 % (0-1); EOSINOPHILS % (AUTO) 0.3 % (0-6); HEMATOCRIT 31.3 % (42.0-52.0); HEMOGLOBIN 10.5 g/dl (14.0-17.9); LYMPHOCYTES # (AUTO) 1.6 X10'3 (1.1-4.8); LYMPHOCYTES % (AUTO) 9.8 % (21-51); MEAN CORPUSCULAR HEMOGLOBIN 36.2 PG (27.0-31.0); MEAN CORPUSCULAR HGB CONC 33.4 g/dL (33.0-36.5); MEAN CORPUSCULAR VOLUME 108.5 FL (78-98); MEAN PLATELET VOLUME 10.4 FL (7.4-10.4); MONOCYTES # (AUTO) 2.1 X10'3 (0-0.9); MONOCYTES % (AUTO) 12.4 % (2-12); NEUTROPHILS # (AUTO) 12.9 X10'3 (1.8-7.7); NEUTROPHILS % (AUTO) 77.1 % (42-75); PLATELET COUNT 129 X10'3 (140-440); RED BLOOD COUNT 2.89 X10'6 (4.70-6.10); RED CELL DISTRIBUTION WIDTH 16.6 % (11.5-14.5); WHITE BLOOD COUNT 16.7 X10'3 (4.5-11.0)
--- NOTE | 2022-08-01 06:51 | NUR ---
Patient in room [facility] 345. I have received report from Isabel REVELES and had the opportunity to ask questions and assume patient care.
[2022-08-01 07:18] LABS: ALANINE AMINOTRANSFERASE 76 U/L (12-78); ALBUMIN 1.6 G/DL (3.4-5.0); ALKALINE PHOSPHATASE 157 IU/L (46-116); AMYLASE 28 U/L (25-115); ANION GAP 10 (8-16); BILIRUBIN,TOTAL 15.9 MG/DL (0.1-1.0); BLOOD UREA NITROGEN 21 MG/DL (7-18); CALCIUM 8.8 MG/DL (8.5-10.1); CHLORIDE 119 MMOL/L (99-107); LIPASE 225 U/L (73-393); MAGNESIUM 1.8 MG/DL (1.5-2.4); SODIUM 151 MMOL/L (135-145); TOTAL CARBON DIOXIDE 21.6 MMOL/L (24-32)
[2022-08-01 07:21] LABS: ALBUMIN/GLOBULIN RATIO 0.4 (1.1-1.5); ASPARTATE AMINO TRANSFERASE 107 U/L (10-37); CREATININE 1.05 MG/DL (0.60-1.10); GLUCOSE 130 MG/DL (70-104); PHOSPHORUS 3.7 MG/DL (2.3-4.5); POTASSIUM 3.6 MMOL/L (3.5-5.1); TOTAL PROTEIN 5.7 G/DL (6.4-8.2); eGFR 72 ML/MIN
[2022-08-01 07:40] LABS: TOTAL CELLS COUNTED 100
[2022-08-01 07:41] LABS: ANISOCYTOSIS 1+; GIANT PLATELET FEW; PLATELET ESTIMATE DECREASED
[2022-08-01 07:42] LABS: BURR CELLS FEW; SCHISTOCYTES FEW
[2022-08-01] MEDS ORDERED: folic acid 1mg tablet PO SCH (08:00)
[2022-08-01] MEDS: K and/or MAG REPLACEMENT MC SCH ×2 (08:00→20:00)
[2022-08-01] MEDS ORDERED: thiamine 100mg tablet PO SCH (08:00)
[2022-08-01] MEDS: rifaximin 550mg tablet PO SCH (08:25)
[2022-08-01] MEDS: thiamine 100mg/ml 2ml inj. IV SCH (08:25)
[2022-08-01] MEDS: folic acid 1mg/0.2ml inj IV SCH (08:25)
[2022-08-01] MEDS: prednisone 10mg tablet PO SCH (08:25)
[2022-08-01] MEDS: Ursodiol 300mg capsule PO SCH (08:25)
[2022-08-01] MEDS: multivitamins, therapeutics tablet PO SCH (08:25)
[2022-08-01] MEDS: CefTRIAXone/D5W-Rocephin 1gm 50 ML IV SCH (08:26)
--- NOTE | 2022-08-01 09:09 | NUR ---
TF consult: Pt to start NGTF per MD. Remains on MM5 diet per ALMOND PASTE MOLDER recs w/ avg intake 30% of meals and 58% of ONS. Given that pt is still taking in some PO, TF will be more supplemental and nocturnal at this time, recs below d/w RN. Noted w/ 300ml stool output this AM. Will continue to monitor. Rec: 1. Continue Mech soft diet as tolerated; consider BSS w/ ALMOND PASTE MOLDER 2. Ensure Enlive TID 3. Nocturnal TF using Pivot 1.5 at 70ml/hr for 12hr. To provide 840ml volume, 1260kcals, 79g protein, 638ml free water. To run from [id number] 4. Additional water flush 150ml Q4h; monitor serum Na 5. Bowel care per rx 6. Scaled wts Addendum: 08/01/22 at [address] Amended: Links added.
[2022-08-01 10:00] VITALS: BP 142/84
--- NOTE | 2022-08-01 12:45 | NUR ---
f/u: Per discussion w/ RN, order for pt to be NPO and would like TF to be continuous; though pt was having moderate PO during the day. RN states that pt is under some moderate sedation at this time and may not be able to consume PO. Updated recs for continuous TF monitor. Rec: 1. Continuous TF per MD using Jevity 1.2 at 80ml/hr goal to provide 1920ml volume, 2304kcals, 107g protein, 1549ml free water 2. Additional water flush 150ml Q4h; monitor serum Na 3. PALB Q / 4. Routine bowel care per 5. Daily wts 6. Advance back to MM5/NTL diet as appropriate per CERTIFIED INCOME TAX PREPARER recs Addendum: 08/01/22 at [address] Amended: Links added.
[2022-08-01] MEDS ORDERED: mag hydrox/Alum hydrox/simeth 30ml oral suspension NG PRN (13:22)
[2022-08-01] MEDS ORDERED: prednisone 10mg tablet NG SCH (13:23)
[2022-08-01] MEDS ORDERED: POTASSIUM BICARB 20meq eff tab 20 MEQ TABLET.EFF NG PRN (16:21)
[2022-08-01] MEDS: lactulose 20gm/30ml cup NG SCH ×2 (16:44→23:49)
[2022-08-01 18:00] VITALS: BP 152/84
--- NOTE | 2022-08-01 18:20 | NUR ---
Patient in room [facility] 345. I have received report from Marcia and had the opportunity to ask questions and assume patient care.
--- NOTE | 2022-08-01 18:28 | NUR ---
Problems reprioritized. Patient report given, questions answered & plan of care reviewed with Abeba FLOR.
[2022-08-01] MEDS: NUT.TX.IMPAIRED DIGEST FXN (Ensure Clear) 237 ML NG SCH (20:21)
[2022-08-01] MEDS: lactose-reduced food (Ensure Enlive) - 237ml bottle NG SCH (20:21)
[2022-08-01] MEDS: Ursodiol 300mg capsule NG SCH (20:51)
[2022-08-01] MEDS: rifaximin 550mg tablet NG SCH (20:51)
--- NOTE | 2022-08-01 21:09 | NUR ---
NG tube placement checked prior to administration of meds and water.
[2022-08-01 22:00] VITALS: BP 152/85
[2022-08-01] MEDS: morphine 2 MG/ML inj. syringe IV PRN (22:32)
[2022-08-02] MEDS: metroNIDAZOLE-Flagyl 500mg/NS 100 ML IV SCH (00:54)
--- NOTE | 2022-08-02 01:00 | NUR ---
Increased tube feeding 30m: to make a total of 50mL per MD order. I will let oncoming shift that next increase will be at 0900 another 30mL to a goal of 80mL. Patient tolerating tube feed increase. Will continue to assess status.
[2022-08-02] MEDS: LORazepam 2 mg/ml vial IV PRN ×6 (02:23→23:15)
[2022-08-02] MEDS: morphine 2 MG/ML inj. syringe IV PRN ×3 (04:19→16:00)
--- NOTE | 2022-08-02 05:53 | NUR ---
Reviewed HEAVY EQUIPMENT SERVICE MANAGER Aletha physical assessment and in agreement.
[2022-08-02 06:00] VITALS: BP 124/66
[2022-08-02 06:05] LABS: BASOPHILS # (AUTO) 0.2 X10'3 (0-0.2); BASOPHILS % (AUTO) 1.3 % (0-1); EOSINOPHILS # (AUTO) 0.1 X10'3 (0-0.9); EOSINOPHILS % (AUTO) 0.6 % (0-6); HEMATOCRIT 31.9 % (42.0-52.0); HEMOGLOBIN 10.3 g/dl (14.0-17.9); LYMPHOCYTES # (AUTO) 1.6 X10'3 (1.1-4.8); LYMPHOCYTES % (AUTO) 9.8 % (21-51); MEAN CORPUSCULAR HGB CONC 32.4 g/dL (33.0-36.5); MEAN PLATELET VOLUME 10.4 FL (7.4-10.4); MONOCYTES # (AUTO) 2.1 X10'3 (0-0.9); MONOCYTES % (AUTO) 12.8 % (2-12); NEUTROPHILS # (AUTO) 12.4 X10'3 (1.8-7.7); NEUTROPHILS % (AUTO) 75.5 % (42-75); PLATELET COUNT 130 X10'3 (140-440); RED BLOOD COUNT 2.87 X10'6 (4.70-6.10); WHITE BLOOD COUNT 16.4 X10'3 (4.5-11.0)
[2022-08-02 06:25] LABS: ALANINE AMINOTRANSFERASE 80 U/L (12-78); ALBUMIN 1.6 G/DL (3.4-5.0); ALKALINE PHOSPHATASE 153 IU/L (46-116); ANION GAP 8 (8-16); BILIRUBIN,TOTAL 14.5 MG/DL (0.1-1.0); BLOOD UREA NITROGEN 23 MG/DL (7-18); CALCIUM 8.8 MG/DL (8.5-10.1); CHLORIDE 119 MMOL/L (99-107); MAGNESIUM 1.9 MG/DL (1.5-2.4); PREALBUMIN 8.5 MG/DL (19-36); SODIUM 150 MMOL/L (135-145)
--- NOTE | 2022-08-02 06:30 | NUR ---
Patient in room [facility] 345. I have received report from jerome FLOR and had the opportunity to ask questions and assume patient care.
--- NOTE | 2022-08-02 06:32 | NUR ---
Problems reprioritized. Patient report given, questions answered & plan of care reviewed with Marcia.
[2022-08-02 06:34] LABS: ALBUMIN/GLOBULIN RATIO 0.4 (1.1-1.5); ASPARTATE AMINO TRANSFERASE 115 U/L (10-37); BUN/CREATININE RATIO 22.1 (5.4-32.0); CREATININE 1.04 MG/DL (0.60-1.10); GLUCOSE 130 MG/DL (70-104); PHOSPHORUS 3.2 MG/DL (2.3-4.5); POTASSIUM 3.3 MMOL/L (3.5-5.1); TOTAL PROTEIN 5.6 G/DL (6.4-8.2); eGFR 73 ML/MIN
[2022-08-02] MEDS: NUT.TX.IMPAIRED DIGEST FXN (Ensure Clear) 237 ML NG SCH ×3 (08:00→18:00)
[2022-08-02] MEDS: K and/or MAG REPLACEMENT MC SCH ×2 (08:00→19:06)
[2022-08-02] MEDS: lactose-reduced food (Ensure Enlive) - 237ml bottle NG SCH ×3 (08:00→18:00)
[2022-08-02] MEDS: prednisone 10mg tablet NG SCH (08:55)
[2022-08-02] MEDS: rifaximin 550mg tablet NG SCH ×2 (08:55→20:08)
[2022-08-02] MEDS: lactulose 20gm/30ml cup NG SCH ×5 (08:56→23:59)
[2022-08-02] MEDS: dextrose 5%-water 1,000 ML IV SCH (08:57)
[2022-08-02] MEDS: thiamine 100mg tablet NG SCH (08:57)
[2022-08-02] MEDS: Ursodiol 300mg capsule NG SCH ×2 (08:58→20:08)
[2022-08-02] MEDS: MULTIVIT-MIN/FERROUS GLUCONATE 9 MG/15 ML LIQUID NG SCH (08:58)
[2022-08-02] MEDS: piperacillin/tazo 3.375gm/50ml 50 ML IV SCH ×2 (09:37→16:04)
[2022-08-02 10:00] VITALS: BP 113/68
[2022-08-02] MEDS: POTASSIUM BICARB 20meq eff tab 20 MEQ TABLET.EFF NG PRN ×2 (16:38→20:08)
--- NOTE | 2022-08-02 17:12 | NUR ---
Noon medication was given, extra lactulose in pt specific. Was not scanned. Students assisted.
[2022-08-02 18:00] VITALS: BP 109/67
--- NOTE | 2022-08-02 18:20 | NUR ---
Problems reprioritized. Patient report given, questions answered & plan of care reviewed with Zuleyma FLOR.
--- NOTE | 2022-08-02 18:43 | NUR ---
Patient in room [facility] 345. I have received report from Marcia and had the opportunity to ask questions and assume patient care.
[2022-08-02 22:00] VITALS: BP 120/73
--- NOTE | 2022-08-02 23:41 | NUR ---
Agree with Aletha INFECTION CONTROL COORDINATOR physical assessment.
[2022-08-03] MEDS: POTASSIUM BICARB 20meq eff tab 20 MEQ TABLET.EFF NG PRN (00:05)
[2022-08-03] MEDS: morphine 2 MG/ML inj. syringe IV PRN ×3 (00:17→18:02)
[2022-08-03] MEDS: piperacillin/tazo 3.375gm/50ml 50 ML IV SCH ×3 (00:27→15:31)
[2022-08-03] MEDS: lactulose 20gm/30ml cup NG SCH ×3 (03:20→15:30)
[2022-08-03] MEDS: LORazepam 2 mg/ml vial IV PRN ×8 (03:58→22:55)
[2022-08-03 06:00] VITALS: BP 100/58
--- NOTE | 2022-08-03 06:07 | NUR ---
Problems reprioritized. Patient report given, questions answered & plan of care reviewed with Patricia.
[2022-08-03 06:26] LABS: BASOPHILS # (AUTO) 0.2 X10'3 (0-0.2); BASOPHILS % (AUTO) 1.4 % (0-1); EOSINOPHILS # (AUTO) 0.2 X10'3 (0-0.9); HEMATOCRIT 31.3 % (42.0-52.0); HEMOGLOBIN 10.6 g/dl (14.0-17.9); LYMPHOCYTES # (AUTO) 1.3 X10'3 (1.1-4.8); LYMPHOCYTES % (AUTO) 7.6 % (21-51); MEAN CORPUSCULAR HEMOGLOBIN 36.3 PG (27.0-31.0); MEAN CORPUSCULAR HGB CONC 33.9 g/dL (33.0-36.5); MEAN CORPUSCULAR VOLUME 107.1 FL (78-98); MEAN PLATELET VOLUME 10.3 FL (7.4-10.4); MONOCYTES # (AUTO) 1.9 X10'3 (0-0.9); MONOCYTES % (AUTO) 11.3 % (2-12); NEUTROPHILS % (AUTO) 78.7 % (42-75); PLATELET COUNT 121 X10'3 (140-440); RED BLOOD COUNT 2.92 X10'6 (4.70-6.10); RED CELL DISTRIBUTION WIDTH 16.5 % (11.5-14.5); WHITE BLOOD COUNT 16.5 X10'3 (4.5-11.0)
[2022-08-03 06:35] LABS: ALANINE AMINOTRANSFERASE 83 U/L (12-78); ALBUMIN 1.5 G/DL (3.4-5.0); ALKALINE PHOSPHATASE 164 IU/L (46-116); ANION GAP 7 (8-16); BILIRUBIN,TOTAL 13.4 MG/DL (0.1-1.0); BLOOD UREA NITROGEN 20 MG/DL (7-18); CALCIUM 9.1 MG/DL (8.5-10.1); CHLORIDE 120 MMOL/L (99-107); MAGNESIUM 2.1 MG/DL (1.5-2.4); SODIUM 151 MMOL/L (135-145); TOTAL CARBON DIOXIDE 24.5 MMOL/L (24-32)
[2022-08-03 06:43] LABS: ALBUMIN/GLOBULIN RATIO 0.4 (1.1-1.5); ASPARTATE AMINO TRANSFERASE 122 U/L (10-37); BUN/CREATININE RATIO 19.2 (5.4-32.0); CREATININE 1.04 MG/DL (0.60-1.10); GLUCOSE 145 MG/DL (70-104); PHOSPHORUS 3.3 MG/DL (2.3-4.5); POTASSIUM 3.8 MMOL/L (3.5-5.1); TOTAL PROTEIN 5.7 G/DL (6.4-8.2); eGFR 73 ML/MIN
--- NOTE | 2022-08-03 06:45 | NUR ---
Patient in room [facility] 345. I have received report from Yamile REVELES and had the opportunity to ask questions and assume patient care.
[2022-08-03] MEDS ORDERED: thiamine 100mg tablet PO SCH (08:00)
[2022-08-03] MEDS: NUT.TX.IMPAIRED DIGEST FXN (Ensure Clear) 237 ML NG SCH (08:00)
[2022-08-03] MEDS: lactose-reduced food (Ensure Enlive) - 237ml bottle NG SCH (08:00)
[2022-08-03] MEDS: K and/or MAG REPLACEMENT MC SCH ×2 (08:00→20:00)
[2022-08-03] MEDS: folic acid 1mg tablet NG SCH (08:12)
[2022-08-03] MEDS: MULTIVIT-MIN/FERROUS GLUCONATE 9 MG/15 ML LIQUID NG SCH (08:12)
[2022-08-03] MEDS: Ursodiol 300mg capsule NG SCH ×2 (08:12→21:07)
[2022-08-03] MEDS: prednisone 10mg tablet NG SCH (08:13)
[2022-08-03] MEDS: rifaximin 550mg tablet NG SCH ×2 (08:13→21:08)
[2022-08-03] MEDS: thiamine 100mg tablet NG SCH (08:13)
[2022-08-03 10:00] VITALS: BP 103/61
--- NOTE | 2022-08-03 10:59 | NUR ---
patient seen by DR Bennett, present , to continue all cares.
[2022-08-03 18:00] VITALS: BP 150/77
--- NOTE | 2022-08-03 18:43 | NUR ---
Problems reprioritized. Patient report given, questions answered & plan of care reviewed with Pat RN.
[2022-08-03 22:00] VITALS: BP 142/71
[2022-08-04] MEDS: morphine 2 MG/ML inj. syringe IV PRN ×4 (00:14→23:41)
[2022-08-04] MEDS: lactulose 20gm/30ml cup NG SCH ×4 (00:15→23:40)
[2022-08-04] MEDS: piperacillin/tazo 3.375gm/50ml 50 ML IV SCH ×4 (00:16→23:40)
[2022-08-04] MEDS: dextrose 5%-water 1,000 ML IV SCH (00:50)
[2022-08-04] MEDS: LORazepam 2 mg/ml vial IV PRN ×5 (01:16→14:40)
[2022-08-04 06:00] VITALS: BP 127/72
--- NOTE | 2022-08-04 06:15 | NUR ---
Patient in room [facility] 345. I have received report from pat RN and had the opportunity to ask questions and assume patient care.
[2022-08-04 07:18] LABS: BASOPHILS % (AUTO) 0.3 % (0-1); EOSINOPHILS # (AUTO) 0.2 X10'3 (0-0.9); EOSINOPHILS % (AUTO) 1.5 % (0-6); HEMATOCRIT 29.6 % (42.0-52.0); LYMPHOCYTES # (AUTO) 1.2 X10'3 (1.1-4.8); LYMPHOCYTES % (AUTO) 7.6 % (21-51); MEAN CORPUSCULAR HEMOGLOBIN 36.6 PG (27.0-31.0); MEAN CORPUSCULAR HGB CONC 33.9 g/dL (33.0-36.5); MEAN CORPUSCULAR VOLUME 107.9 FL (78-98); MEAN PLATELET VOLUME 10.7 FL (7.4-10.4); MONOCYTES # (AUTO) 1.7 X10'3 (0-0.9); MONOCYTES % (AUTO) 10.3 % (2-12); NEUTROPHILS % (AUTO) 80.3 % (42-75); PLATELET COUNT 116 X10'3 (140-440); RED BLOOD COUNT 2.74 X10'6 (4.70-6.10); RED CELL DISTRIBUTION WIDTH 16.9 % (11.5-14.5); WHITE BLOOD COUNT 16.3 X10'3 (4.5-11.0)
[2022-08-04 07:28] LABS: ALANINE AMINOTRANSFERASE 87 U/L (12-78); ALBUMIN 1.5 G/DL (3.4-5.0); ALKALINE PHOSPHATASE 156 IU/L (46-116); ANION GAP 6 (8-16); ASPARTATE AMINO TRANSFERASE 127 U/L (10-37); BLOOD UREA NITROGEN 26 MG/DL (7-18); BUN/CREATININE RATIO 24.1 (5.4-32.0); CALCIUM 8.9 MG/DL (8.5-10.1); CHLORIDE 122 MMOL/L (99-107); CREATININE 1.08 MG/DL (0.60-1.10); GLUCOSE 138 MG/DL (70-104); SODIUM 154 MMOL/L (135-145); TOTAL CARBON DIOXIDE 25.8 MMOL/L (24-32); eGFR 70 ML/MIN
[2022-08-04 07:48] LABS: POTASSIUM 3.7 MMOL/L (3.5-5.1)
[2022-08-04 07:49] LABS: ALBUMIN/GLOBULIN RATIO 0.4 (1.1-1.5); PHOSPHORUS 3.3 MG/DL (2.3-4.5); TOTAL PROTEIN 5.3 G/DL (6.4-8.2)
[2022-08-04] MEDS: K and/or MAG REPLACEMENT MC SCH ×2 (08:00→20:00)
[2022-08-04] MEDS: Ursodiol 300mg capsule NG SCH ×2 (08:27→20:24)
[2022-08-04] MEDS: MULTIVIT-MIN/FERROUS GLUCONATE 9 MG/15 ML LIQUID NG SCH (08:27)
[2022-08-04] MEDS: folic acid 1mg tablet NG SCH (08:27)
[2022-08-04] MEDS: thiamine 100mg tablet NG SCH (08:27)
[2022-08-04] MEDS: rifaximin 550mg tablet NG SCH ×2 (08:27→20:24)
[2022-08-04] MEDS: prednisone 10mg tablet NG SCH (08:28)
[2022-08-04 08:33] LABS: ANISOCYTOSIS 1+; LARGE PLATELETS FEW; PLATELET ESTIMATE DECREASED
[2022-08-04 10:00] VITALS: BP 143/79
[2022-08-04] MEDS ORDERED: albuterol 2.5 MG/3 ML nebule NEB PRN (11:40)
--- NOTE | 2022-08-04 11:42 | NUR ---
Request sent to Dr. Mohamud PAGER ID: [phone] MESSAGE: re: [id number] [facility] Log Getter requested that pt's free water (via tube) be increased to 250cc Q4 (increasing from 150cc) due to Sodium level is up to 154. Thx Vianca [id number] New orders/rtn call pending.
[2022-08-04] MEDS ORDERED: albuterol 2.5 MG/3 ML nebule ONE (11:47)
--- NOTE | 2022-08-04 13:10 | NUR ---
F/u 08/04: Noted pt serum Na 154 w/ consistently 1000-1800mL rectal tube output past 3 days receiving routine Lactulose per EMR. SHAINA d/w RN who paged MD; recommend increasing free water to 250ml Q4H if MD agreeable. Pending new orders at this time. Rec: 1. Continuous TF per MD using Jevity 1.2 at 80ml/hr goal to provide 1920ml volume, 2304kcals, 107g protein, 1549ml free water 2. Additional water flush 250ml Q4H; monitor serum Na 3. PALB Q / 4. Routine lactulose per MD 5. Daily wts 6. Advance back to MM5/NTL diet as appropriate per TRAFFIC CIRCUIT ENGINEER recs Addendum: 08/04/22 at [address] Amended: Links added.
[2022-08-04 18:00] VITALS: BP 156/76
--- NOTE | 2022-08-04 18:19 | NUR ---
Problems reprioritized. Patient report given, questions answered & plan of care reviewed with Scooter REVELES.
[2022-08-04 22:00] VITALS: BP 154/70
[2022-08-05] MEDS: morphine 2 MG/ML inj. syringe IV PRN (05:02)
--- NOTE | 2022-08-05 06:09 | NUR ---
Problems reprioritized. Patient report given, questions answered & plan of care reviewed with José REVELES. Addendum: 08/05/22 at 0610 by Bina Leslie RN Amended: Links added.
--- NOTE | 2022-08-05 06:41 | NUR ---
Problems reprioritized. Patient report given, questions answered & plan of care reviewed with José REVELES. Addendum: 08/05/22 at 0641 by Bina Leslie RN Amended: Links added.
--- NOTE | 2022-08-05 06:49 | NUR ---
Patient in room [facility]. I have received report from MICHAEL REVELES and had the opportunity to ask questions and assume patient care.
[2022-08-05 07:15] VITALS: BP 145/78
[2022-08-05] MEDS: K and/or MAG REPLACEMENT MC SCH ×2 (08:00→20:00)
[2022-08-05 08:20] LABS: BASOPHILS # (AUTO) 0.1 X10'3 (0-0.2); BASOPHILS % (AUTO) 0.4 % (0-1); EOSINOPHILS # (AUTO) 0.2 X10'3 (0-0.9); EOSINOPHILS % (AUTO) 1.3 % (0-6); HEMATOCRIT 30.4 % (42.0-52.0); HEMOGLOBIN 10.2 g/dl (14.0-17.9); LYMPHOCYTES # (AUTO) 1.2 X10'3 (1.1-4.8); MEAN CORPUSCULAR HEMOGLOBIN 36.5 PG (27.0-31.0); MEAN CORPUSCULAR HGB CONC 33.5 g/dL (33.0-36.5); MEAN CORPUSCULAR VOLUME 108.8 FL (78-98); MEAN PLATELET VOLUME 11.1 FL (7.4-10.4); MONOCYTES # (AUTO) 1.5 X10'3 (0-0.9); NEUTROPHILS # (AUTO) 13.6 X10'3 (1.8-7.7); NEUTROPHILS % (AUTO) 82.3 % (42-75); PLATELET COUNT 102 X10'3 (140-440); RED CELL DISTRIBUTION WIDTH 17.2 % (11.5-14.5); WHITE BLOOD COUNT 16.5 X10'3 (4.5-11.0)
[2022-08-05 08:35] LABS: ALANINE AMINOTRANSFERASE 95 U/L (12-78); ALBUMIN 1.4 G/DL (3.4-5.0); ALKALINE PHOSPHATASE 146 IU/L (46-116); ANION GAP 6 (8-16); ASPARTATE AMINO TRANSFERASE 140 U/L (10-37); BILIRUBIN,TOTAL 9.8 MG/DL (0.1-1.0); BLOOD UREA NITROGEN 29 MG/DL (7-18); BUN/CREATININE RATIO 28.7 (5.4-32.0); CALCIUM 9.1 MG/DL (8.5-10.1); CHLORIDE 125 MMOL/L (99-107); CREATININE 1.01 MG/DL (0.60-1.10); GLUCOSE 150 MG/DL (70-104); TOTAL CARBON DIOXIDE 27.5 MMOL/L (24-32); eGFR 75 ML/MIN
[2022-08-05 08:39] LABS: LARGE PLATELETS FEW; PLATELET ESTIMATE DECREASED
[2022-08-05 08:40] LABS: ANISOCYTOSIS 1+
[2022-08-05 08:41] LABS: ALBUMIN/GLOBULIN RATIO 0.3 (1.1-1.5); PHOSPHORUS 3.8 MG/DL (2.3-4.5); POTASSIUM 3.8 MMOL/L (3.5-5.1); TOTAL PROTEIN 5.6 G/DL (6.4-8.2)
[2022-08-05 08:44] LABS: SODIUM 158 MMOL/L (135-145)
--- NOTE | 2022-08-05 08:55 | NUR ---
Reassessment; Pt continues to receive TF at goal and tolerating. However, serum Na continues to increase, at 158mmol/L this AM. TC from RN who states okay w/ increasing free water to 250ml Q4H. Pt w/ rectal tube, ~1000ml output 08/03 per documentation, receiving routine lactulose. Will continue to monitor. Rec: 1. Continuous TF per MD using Jevity 1.2 at 80ml/hr goal to provide 1920ml volume, 2304kcals, 107g protein, 1549ml free water 2. Additional water flush 250ml Q4H; monitor serum Na 3. PALB Q / 4. Routine lactulose per MD 5. Daily wts 6. 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
[2022-08-05] MEDS: piperacillin/tazo 3.375gm/50ml 50 ML IV SCH ×2 (09:57→16:20)
[2022-08-05] MEDS: prednisone 10mg tablet NG SCH (09:58)
[2022-08-05] MEDS: folic acid 1mg tablet NG SCH (09:58)
[2022-08-05] MEDS: thiamine 100mg tablet NG SCH (09:58)
[2022-08-05] MEDS: rifaximin 550mg tablet NG SCH ×2 (09:58→20:55)
[2022-08-05] MEDS: Ursodiol 300mg capsule NG SCH ×2 (09:59→20:55)
[2022-08-05 10:00] VITALS: BP 182/82
[2022-08-05] MEDS: lactulose 20gm/30ml cup NG SCH ×2 (10:00→16:26)
[2022-08-05] MEDS: MULTIVIT-MIN/FERROUS GLUCONATE 9 MG/15 ML LIQUID NG SCH (10:00)
--- NOTE | 2022-08-05 11:22 | NUR ---
Changed patients rectal tube bag during this hour.
[2022-08-05] MEDS: LORazepam 2 mg/ml vial IV PRN ×2 (13:42→20:55)
[2022-08-05 18:30] VITALS: BP 130/75
--- NOTE | 2022-08-05 18:30 | NUR ---
Patient in room [facility]. I have received report from DAGOBERTO REVELES and had the opportunity to ask questions and assume patient care. Addendum: 08/05/22 at 1856 by Raquel Miranda RN Amended: Links added.
[2022-08-05 22:00] VITALS: BP 145/79
[2022-08-06] MEDS: lactulose 20gm/30ml cup NG SCH ×2 (00:27→07:47)
[2022-08-06] MEDS: piperacillin/tazo 3.375gm/50ml 50 ML IV SCH ×2 (00:27→09:09)
[2022-08-06] MEDS: LORazepam 2 mg/ml vial IV PRN ×4 (00:29→21:40)
[2022-08-06] MEDS: dextrose 5%-water 1,000 ML IV SCH (01:15)
--- NOTE | 2022-08-06 06:26 | NUR ---
Problems reprioritized. Patient report given, questions answered & plan of care reviewed with ANUSHAK ARENAS. Addendum: 08/06/22 at 0626 by Raquel Miranda RN Amended: Links added.
--- NOTE | 2022-08-06 06:27 | NUR ---
Patient in room [facility]. I have received report from Marissa REVELES and had the opportunity to ask questions and assume patient care.
--- NOTE | 2022-08-06 06:57 | NUR ---
PAGER ID: [phone] MESSAGE: José Surg [id number] Deandre Luc Patient has a fever of 101.3 this morning. I have nothing to treat his fever at this time. Is there anything you would like to add? AST 140 ALT 95.
--- NOTE | 2022-08-06 07:08 | NUR ---
MESSAGE: José Surg [id number] Luc Carrera Patient has a fever of 101.3 this morning. I have nothing to treat his fever at this time. Anything you would like to add? AST 140 ALT 95.
[2022-08-06 07:18] VITALS: BP 115/63
[2022-08-06] MEDS: Ursodiol 300mg capsule NG SCH (07:48)
[2022-08-06] MEDS: MULTIVIT-MIN/FERROUS GLUCONATE 9 MG/15 ML LIQUID NG SCH (07:48)
[2022-08-06] MEDS: thiamine 100mg tablet NG SCH (07:49)
[2022-08-06] MEDS: rifaximin 550mg tablet NG SCH (07:50)
[2022-08-06] MEDS: prednisone 10mg tablet NG SCH (07:52)
[2022-08-06] MEDS: folic acid 1mg tablet NG SCH (07:52)
[2022-08-06] MEDS: K and/or MAG REPLACEMENT MC SCH (08:00)
[2022-08-06 08:08] LABS: BASOPHILS # (AUTO) 0.1 X10'3 (0-0.2); BASOPHILS % (AUTO) 0.6 % (0-1); EOSINOPHILS # (AUTO) 0.2 X10'3 (0-0.9); EOSINOPHILS % (AUTO) 1.1 % (0-6); HEMATOCRIT 30.2 % (42.0-52.0); HEMOGLOBIN 10.2 g/dl (14.0-17.9); LYMPHOCYTES # (AUTO) 1.8 X10'3 (1.1-4.8); LYMPHOCYTES % (AUTO) 9.8 % (21-51); MEAN CORPUSCULAR HEMOGLOBIN 36.7 PG (27.0-31.0); MEAN CORPUSCULAR HGB CONC 33.8 g/dL (33.0-36.5); MEAN CORPUSCULAR VOLUME 108.4 FL (78-98); MEAN PLATELET VOLUME 11.2 FL (7.4-10.4); MONOCYTES # (AUTO) 1.5 X10'3 (0-0.9); MONOCYTES % (AUTO) 8.1 % (2-12); NEUTROPHILS % (AUTO) 80.4 % (42-75); PLATELET COUNT 102 X10'3 (140-440); RED BLOOD COUNT 2.79 X10'6 (4.70-6.10); RED CELL DISTRIBUTION WIDTH 17.3 % (11.5-14.5); WHITE BLOOD COUNT 18.7 X10'3 (4.5-11.0)
[2022-08-06 08:19] LABS: ALANINE AMINOTRANSFERASE 103 U/L (12-78); ALBUMIN 1.4 G/DL (3.4-5.0); ALKALINE PHOSPHATASE 150 IU/L (46-116); ANION GAP 7 (8-16); ASPARTATE AMINO TRANSFERASE 155 U/L (10-37); BILIRUBIN,TOTAL 8.9 MG/DL (0.1-1.0); BLOOD UREA NITROGEN 34 MG/DL (7-18); BUN/CREATININE RATIO 32.4 (5.4-32.0); CALCIUM 8.9 MG/DL (8.5-10.1); CHLORIDE 123 MMOL/L (99-107); CREATININE 1.05 MG/DL (0.60-1.10); GLUCOSE 104 MG/DL (70-104); MAGNESIUM 2.1 MG/DL (1.5-2.4); TOTAL CARBON DIOXIDE 26.4 MMOL/L (24-32); eGFR 72 ML/MIN
[2022-08-06 08:25] LABS: ALBUMIN/GLOBULIN RATIO 0.4 (1.1-1.5); POTASSIUM 3.5 MMOL/L (3.5-5.1); TOTAL PROTEIN 5.4 G/DL (6.4-8.2)
[2022-08-06 08:26] LABS: SODIUM 156 MMOL/L (135-145)
[2022-08-06] MEDS ORDERED: acetaminophen 325mg tablet PO ONE (08:35)
[2022-08-06 10:00] VITALS: BP 135/77
--- NOTE | 2022-08-06 11:25 | NUR ---
as clinical nursing informatics specialist, i reviewed student nurse charting
--- NOTE | 2022-08-06 12:06 | NUR ---
PAGER ID: [phone] MESSAGE: José Surg [phone] re: [address] Carrera Code status has changed but all medications and NG tube orders are still active. The comfort pathway is not active at this time. Thanks
[2022-08-06] MEDS ORDERED: morphine 2 MG/ML inj. syringe IV PRN (13:20)
--- NOTE | 2022-08-06 13:41 | NUR ---
Patient placed on comfort care at this time, we will trial the patient without a sitter at this time.
[2022-08-06] MEDS ORDERED: scopolamine 1mg/72 hr patch TD SCH (14:20)
--- NOTE | 2022-08-06 17:13 | NUR ---
HAS SET A PASSWORD, RC GTO, FOR ANYONE COMING UP OR CALLING ABOUT PATIENT
[2022-08-06 18:30] VITALS: BP 123/73
--- NOTE | 2022-08-06 18:30 | NUR ---
Patient in room [facility]. I have received report from ANUSHKA Kumar and had the opportunity to ask questions and assume patient care. Pt now on comfor care, sitter at bedside, calm at this time. Addendum: 08/06/22 at 1957 by Raquel Miranda RN Amended: Links added.
--- NOTE | 2022-08-06 18:39 | NUR ---
Problems reprioritized. Patient report given, questions answered & plan of care reviewed with Marissa REVELES.
[2022-08-06] MEDS: morphine 2 MG/ML inj. syringe IV PRN (21:40)
[2022-08-07] MEDS: LORazepam 2 mg/ml vial IV PRN ×3 (00:34→04:32)
--- NOTE | 2022-08-07 01:01 | NUR ---
more calm after ativan. was shaking arms and starting to grab. Addendum: 08/07/22 at 0102 by Raquel Miranda RN Amended: Links added.
[2022-08-07] MEDS: morphine 10mg/0.5ml (conc. morphine) oral syringe PO PRN ×2 (01:28→23:23)
--- NOTE | 2022-08-07 02:23 | NUR ---
rectal tub checked, intact, reshma care given. ativan for agitation, pt is calming down and resting after repositioned. Addendum: 08/07/22 at 0223 by Raquel Miranda RN Amended: Links added.
[2022-08-07] MEDS ORDERED: acetaminophen 650mg rectal suppository RC ONE (04:25)
[2022-08-07] MEDS: morphine 2 MG/ML inj. syringe IV PRN (04:32)
--- NOTE | 2022-08-07 04:50 | NUR ---
repositioned cool washcloth to face, meds given. goter has been repositioning pt q2hrs as needed for comfrort Addendum: 08/07/22 at 0451 by Raquel Miranda RN Amended: Links added.
[2022-08-07 06:00] VITALS: BP 132/75
--- NOTE | 2022-08-07 06:10 | NUR ---
Problems reprioritized. Patient report given, questions answered & plan of care reviewed with ANUSHKA Dior. Addendum: 08/07/22 at 0624 by Raquel Miranda RN Amended: Links added.
--- NOTE | 2022-08-07 06:39 | NUR ---
Patient in room [facility]. I have received report from ANUSHKA MANRIQUE and had the opportunity to ask questions and assume patient care.
--- NOTE | 2022-08-07 09:04 | NUR ---
Reassessment: Noted pt made DNR w/ comfort care. NG removed and NPO. 700ml rectal tube output 08/07 per documentation. Will continue to monitor. Recs: 1. Bowel care per comfort care measures Addendum: 08/07/22 at [address] Amended: Links added.
[2022-08-07 11:00] VITALS: BP 129/77
--- NOTE | 2022-08-07 14:00 | NUR ---
Student documentation: I have reviewed and agree with all assessments performed and documented by JOANN STUDENT RN
--- NOTE | 2022-08-07 19:13 | NUR ---
Problems reprioritized. Patient report given, questions answered & plan of care reviewed with ANUSHKA IZQUIERDO.
[2022-08-08] MEDS: LORazepam 2 mg/ml vial IV PRN (02:05)
--- NOTE | 2022-08-08 05:41 | NUR ---
RN IS TO DOCUMENT YES TO ALL APPLICABLE AREAS Pronouncement of : 1. Time Physician Notified: 08/08/22519 2. Date of :08/08/22 3. Time of : 508 4. DNR/Withdraw life support documented: YES 5. Monitor strip has been placed on chart: YES 6. Assessment process is of one-minute duration and includes following criteria: a) Patient is unresponsive to all stimuli: YES b) Pupils fixed and non-reactive: YES c) Auscultation of precordium reveals absence of heart tones:YES d) Auscultation of lungs reveals absence of breath sounds:YES e) Absence of blood pressure / all vital signs: YES f) QRS complexes are not present on monitor / EKG strip: YES g) Pacer spikes without capture: 4. Comments: AT BEDSIDE
--- NOTE | 2022-08-08 07:03 | NUR ---
Problems reprioritized. Patient report given, questions answered & plan of care reviewed with ANUSHKA HILL.
== END 2022-08-08 07:20 | DRG 432 ==
LOC: ER 10:16 → ED HOLD 19:39 → PCU 3S 07-20 07:31 → SUR 3N 07-26 14:34
PROVIDERS: ADMIT Internal Medicine; ATTEND Family Medicine
PROC: BW211ZZ Computerized Tomography (CT Scan) of Abdomen and Pelvis using Low Osmolar Contrast (ICD-10-PCS; principal; 2022-07-19)
DX: K70.11 Alcoholic hepatitis with ascites (principal); E43 Unspecified severe protein-calorie malnutrition; J69.0 Pneumonitis due to inhalation of food and vomit; E87.0 Hyperosmolality and hypernatremia; E87.1 Hypo-osmolality and hyponatremia; D64.9 Anemia, unspecified; D69.6 Thrombocytopenia, unspecified; Z66 Do not resuscitate; Z51.5 Encounter for palliative care; E87.6 Hypokalemia; I10 Essential (primary) hypertension; I48.0 Paroxysmal atrial fibrillation; F10.20 Alcohol dependence, uncomplicated; E83.39 Other disorders of phosphorus metabolism; R68.81 Early satiety; K70.40 Alcoholic hepatic failure without coma; Z96.652 Presence of left artificial knee joint; K76.0 Fatty (change of) liver, not elsewhere classified; K76.82 Hepatic encephalopathy; Z91.199 Patient's noncompliance with other medical treatment and regimen due to unspecified reason; Z88.5 Allergy status to narcotic agent; Z79.899 Other long term (current) drug therapy; Z68.35 Body mass index [BMI] 35.0-35.9, adult
CPT/HCPCS: 36415; 71045; 73590; 74178; 76700; 80053; 81001; 82103; 82140; 82150; 82378; 82728; 82948; 83540; 83550; 83605; 83690; 83735; 84100; 84132; 84134; 84145; 84443; 85007; 85008; 85025; 85610; 86301; 86703; 86705; 86706; 86709; 86803; 87040; 87081; 87088; 87340; 92508; 92616; 94640; 94760; 96361; 96365; 97161; 97530; 99285; A4349; A4649; A5200; A6213; A6250; A6258; C9113; G0378; J0696; J1630; J2060; J2270; J2543; J3411; J3475; J3480; J3490; J7030; J7040; J7042; J7050; J7070; J7512; Q9967